=== PATIENT | female | born 1995 | race Caucasian/White ===

== ENCOUNTER → 2017-02-10 | Outpatient (CLI) | payer MEDICAID ==
[~2017-02-10] MED LIST: ACET-789 PO; ACHD5005 PO; ALBU17AE23 INH; ALBU17AE3 IH; AMOX500C2 PO; CEFU250T11 PO; DOCU100C37 PO; FERR-74 PO; HYDR-3720 PO; HYDR1TAB86 PO; IBP600T1 PO; IBUP-1773 PO; KETO75CA PO; MNTL10T PO; PRD20T PO; PREN1TAB71 PO; TRM50T PO; [UNRECOGNIZED DRUG - REMARK]
--- NOTE | 2017-02-10 17:41 | Diagnostic Imaging Report ---
INDICATION: survey. TECHNIQUE: Multiple real-time grayscale images were obtained over the gravid uterus. COMPARISON: None FINDINGS: There is a single intrauterine with heart rate of 144 beats per minute. The placenta is anterior and fundal. No placenta previa. The cervix is 4.7 cm in length and appears closed. The ventricles are not dilated. The posterior fossa appear unremarkable. The stomach, bladder, two-vessel cord, and four-chamber view appear unremarkable. The cord insertion and the spine are not well demonstrated. No evidence of hydronephrosis or cystic renal mass. The maternal adnexa demonstrates no definite abnormality. The ovaries are not seen. Biometrical measurements are as follows: Biparietal 4.22 cm, age 18 weeks 6 days. Head circumference 17.26 cm, age 19 weeks 6 days. Abdominal circumference 15.63 cm, age 20 weeks 6 days. Femur length 3.23 cm, age 20 weeks 1 days. Sonographic estimate age: 20 weeks 0 days. Sonographic estimated date of delivery: 06/30/2017. Estimated Weight: 347 gm (+/- 51 gm). LMP percentile: 15%. heart rate: 144 beats per minute. number: 1 of 1. IMPRESSION: The cord insertion and the spine are not well seen due to position. Dictated by: Dictated on workstation # [id number]
== END ==
LOC: RAD 13:07
PROVIDERS: ATTEND Obstetrics & Gynecology
DX: Z36.87 Encounter for antenatal screening for uncertain dates (principal); Z3A.20 20 weeks gestation of pregnancy
CPT/HCPCS: 76805

== ENCOUNTER → 2017-03-31 | Outpatient (CLI) | payer MEDICAID ==
--- NOTE | 2017-03-31 12:01 | Diagnostic Imaging Report ---
INDICATION: Evaluate anatomy not seen on prior. TECHNIQUE: Multiple real-time grayscale images were obtained over the gravid uterus. COMPARISON: 02/10/2017 FINDINGS: There is a single living intrauterine in a cephalic presentation. There is normal volume of amniotic fluid. The placenta is anterior. No previa. Heart rate is 146 beats per minute and regular. The spine and cord insertion are still not visualized on today's exam. Biometry by first sonogram is 28 weeks zero days. IMPRESSION: Single living intrauterine with a sonographically estimated gestational age of 28 weeks 0 days estimated date of confinement of June 23, 2017. spine and cord insertion were again not well visualized on today's exam. Biometrical measurements are as follows: Biparietal cm, age weeks days. Head circumference cm, age weeks days. Abdominal circumference cm, age weeks days. Femur length cm, age weeks days. Sonographic estimate age: weeks days. Sonographic estimated date of delivery: . Estimated Weight: gm (+/- gm). LMP percentile: %. heart rate: beats per minute. number: of . IMPRESSION: Dictated by: Dictated on workstation # [id number]
== END ==
LOC: RAD 10:16
PROVIDERS: ATTEND Obstetrics & Gynecology
DX: O26.843 Uterine size-date discrepancy, third trimester (principal); Z3A.28 28 weeks gestation of pregnancy
CPT/HCPCS: 76816

== ENCOUNTER 2017-05-19 12:10 | Observation (INO) | payer MEDICAID ==
[~2017-05-19] VITALS: Ht 157.5 cm; Wt 81.6 kg
[~2017-05-19 12:10] MED LIST changes: -FERR-74 PO; +FERR325T18 PO
[2017-05-19 12:20] VITALS: BP 113/66
[2017-05-19] MEDS ORDERED: NS IV 1000 ML 1,000 ML ONE (12:44)
[2017-05-19] MEDS ORDERED: NS IV 1000 ML 1,000 ML IV SCH (13:45)
[2017-05-19 15:45] VITALS: BP 115/65
[2017-05-19] MEDS ORDERED: D5 LR IV SOLUTION 1,000 ML IV ONE (15:54)
[2017-05-19] MEDS: BETAMETHASONE ACE/NA PHOS 6 MG/ML (CELESTONE SOLUSPAN) IM SCH (16:00)
[2017-05-19] MEDS: AMPICILLIN INJECTION 1,000 MG in NS (IVPB) 50 ML IV SCH ×2 (16:15→20:06)
[2017-05-19 16:53] LABS: BILIRUBIN,URINE NEGATIVE (NEGATIVE); CLARITY,URINE CLEAR; COLOR,URINE YELLOW; GLUCOSE, URINE (UA) NEGATIVE (NEGATIVE); KETONES,URINE 2+ (NEGATIVE); LEUKOCYTE ESTERASE ,URINE 1+ (NEGATIVE); NITRITE,URINE NEGATIVE (NEGATIVE); PH,URINE 6 (5-9); PROTEIN,URINE NEGATIVE (NEGATIVE); UROBILINOGEN,URINE NORMAL (NORMAL)
[2017-05-19 16:58] LABS: BASOPHILS % (AUTO) 0 % (0-10); EOSINOPHILS # (AUTO) 0.1 10^3/uL (0.0-0.3); EOSINOPHILS % (AUTO) 1 % (0-10); HEMATOCRIT 32 % (35-52); HEMOGLOBIN 10.7 G/DL (11.5-16.0); LYMPHOCYTES # (AUTO) 1.8 X 10^3 (1.0-4.0); LYMPHOCYTES % (AUTO) 17 % (12-44); MEAN CORPUSCULAR HEMOGLOBIN 27 PG (25-34); MEAN CORPUSCULAR HGB CONC 34 G/DL (32-36); MEAN CORPUSCULAR VOLUME 79 FL (80-99); MONOCYTES # (AUTO) 0.7 X 10^3 (0.0-1.0); MONOCYTES % (AUTO) 6 % (0-12); NEUTROPHILS # (AUTO) 8.1 X 10^3 (1.8-7.8); NEUTROPHILS % (AUTO) 76 % (42-75); PLATELET COUNT 221 10^3/uL (130-400); RED BLOOD COUNT 3.98 10^6/uL (4.35-5.85); RED CELL DISTRIBUTION WIDTH 12.5 % (10.0-14.5); WHITE BLOOD COUNT 10.7 10^3/uL (4.3-11.0)
[2017-05-19 17:05] LABS: RBC,URINE 0-2 /HPF
[2017-05-19 17:06] LABS: BACTERIA,URINE TRACE /HPF
[2017-05-19 19:35] VITALS: BP 124/67
[2017-05-20 00:05] VITALS: BP 106/57
[2017-05-20] MEDS: AMPICILLIN INJECTION 1,000 MG in NS (IVPB) 50 ML IV SCH ×3 (00:05→08:00)
[2017-05-20] MEDS ORDERED: D5 LR IV SOLUTION 1,000 ML IV ONE (01:32)
[2017-05-20 07:22] VITALS: BP 117/64
--- NOTE | 2017-05-20 10:21 | Short Stay Summary ---
History of Present Illness History of Present Illness Reason for visit/HPI contractions, painful Date of Admission 05/19/17 Date of Discharge 05/20/17 Time Seen by Provider: 12:00 Attending Physician Archana Mckeon DO Admitting Physician No,Local Physician Consult Patient was sent from my clinic due to painful contractions. NST reactive but adam every 3-4 minutes. Due to gestational age, sent for monitoring. After IV Fluid bolus she continued to contract. Due to this I opted to monitor her overnight. During this time, ampicillin was started due to unknown GBS ( done in office prior to admission). Also betamethasone given for lung maturity. She was kept overnight and contractions finally ceased. An ultrasound was done due to suboptimal findings on previous ultrasound. Once this was done and BPP and NST reactiva she was discharged to home with labor instructions. Allergies and Home Medications Allergies Coded Allergies: No Known Drug Allergies (Unverified , 11/07/09) Home Medications Albuterol 17 Gm Inh, 1-2 PUFF IH Q4H PRN for SHORTNESS OF BREATH, (Reported) Vit No.124/Iron/FA 1 Each Tablet, 1 EACH PO DAILY, (Reported) Past Ceomuch-Rnlbkq-Snhtsf Hx Patient Social History Marrital Status: cohabiting Number of Children: 1 Number of living children: 1 Smoking Status: Never a Smoker Physical Abuse Screen: No Sexual Abuse: No Recent Foreign Travel: No Contact w/other who traveled: No Recent Infectious Disease Expo: No Immunizations Up To Date Tetanus Booster (TDap): Less than 5yrs Date of Pneumonia Vaccine: Apr 17, 2013 Date of Influenza Vaccine: Feb 16, 2017 Surgeries Yes (bilateral chest tube insertion) Respiratory Yes Asthma Currently Using CPAP: No Cardiovascular No Reproductive System Expected Date of Delivery: May 19, 2017 Last Menstrual Period: Sep 16, 2016 Hx : 2 Hx Para: 1 Hx Total # of Abortions (Spona: 0 Hx Reproductive Disorders: No Sexually Transmitted Disease: Yes (chlamydia) Genitourinary Yes Gastrointestinal Yes Musculoskeletal Yes Endocrine History of Endocrine Disorders: Yes HEENT History of HEENT Disorders: Yes Cancer No Psychosocial Behavioral Health Disorders: Anxiety Blood Transfusions Adverse Reaction to a Blood Tr: No Family Medical History Family Hx: Cancer 03 FATHER Chest pain 03 MOTHER Family history: Asthma 03 MOTHER Headache 03 FATHER 03 MOTHER 09 BROTHER 09 BROTHER 09 SISTER Visual impairment 03 MOTHER No Family History of: Abdominal aortic aneurysm Beau's disease Alcoholism Aphasia Cancer of colon Cataract Congenital heart disease Congestive heart failure Cystic fibrosis Dementia Dysphagia Family history: Allergy Family history: Alzheimer's disease Family history: Arthritis Family history: Breast disease Family history: Cardiovascular disease Family history: Coronary thrombosis Family history: Diabetes mellitus Family history: Gastrointestinal disease Family history: Glaucoma Family history: Hypertension Family history: Osteoporosis Hearing loss Heart disease Hereditary disease History of - anemia History of - disorder History of - respiratory disease History of drug abuse Human immunodeficiency virus (HIV) seropositivity Hypercholesterolemia Infertile Kidney disease Malignant neoplasm of lung Myocardial infarction Parkinson's disease Prostate cancer Psychotic disorder Seizure disorder Stroke Tuberculosis Constitutional: no symptoms reported Physical Exam Vital Signs Vital Signs - First Documented 05/19/17 05/19/17 12:20 19:35 Temp 98.3 Pulse 73 Resp 20 B/P (MAP) 113/66 (82) O2 Delivery Room Air Capillary Refill : General Appearance: No Apparent Distress Respiratory: Chest Non Tender, Lungs Clear Cardiovascular: Regular Rate, Rhythm Short Stay Diagnosis Discharge Diagnosis-Short Stay Admission Diagnosis: Premature contractions Final Discharge Diagnosis: Premature congtraction threatened labor Conclusion Labs Laboratory Tests 05/19/17 16:05: Urine Color YELLOW, Urine Clarity CLEAR, Urine pH 6, Urine Specific [place] 1.015L, Urine Protein NEGATIVE, Urine Glucose (UA) NEGATIVE, Urine Ketones 2+H, Urine Nitrite NEGATIVE, Urine Bilirubin NEGATIVE, Urine Urobilinogen NORMAL, Urine Leukocyte Esterase 1+H, Urine RBC (Auto) 4+H, Urine RBC 0-2, Urine WBC 2-5 , Urine Squamous Epithelial Cells 5-10, Urine Crystals NONE, Urine Bacteria TRACE, Urine Casts NONE, Urine Mucus NEGATIVE, Urine Culture Indicated NO 05/19/17 16:51: White Blood Count 10.7, Red Blood Count 3.98L, Hemoglobin 10.7L, Hematocrit 32L , Mean Corpuscular Volume 79L, Mean Corpuscular Hemoglobin 27, Mean Corpuscular Hemoglobin Concent 34, Red Cell Distribution Width 12.5, Platelet Count 221, Mean Platelet Volume 10.0, Neutrophils (%) (Auto) 76H, Lymphocytes (%) (Auto) 17 , Monocytes (%) (Auto) 6, Eosinophils (%) (Auto) 1, Basophils (%) (Auto) 0, Neutrophils # (Auto) 8.1H, Lymphocytes # (Auto) 1.8, Monocytes # (Auto) 0.7, Eosinophils # (Auto) 0.1, Basophils # (Auto) 0.0 Conclusion/Plan see above ARCHANA MCKEON DO May 20, 2017 10:21 am
--- NOTE | 2017-05-20 10:24 | Discharge Inst-Women's Service ---
Discharge Inst-Women's Serv Depart Medication/Instructions New, Converted or Re-Newed RX: Other (no rx) Final Diagnosis labor, threatened Consults/Follow Up Additional Follow Up: Yes (05/26/17 as scheduled) Activity Activity: Activity as Tolerated Driving Instructions: You May Drive NO SMOKING: NO SMOKING Nothing Inside Vagina: No Douching, No Bow, No Tampons Diet Discharge Diet: No Restrictions labor insturctions For Any Problems or Questions: Contact Your Physician, Go to Emergency Room ( Labor and delivery) AMY MCKEON DO May 20, 2017 10:24
[2017-05-20] MEDS: BETAMETHASONE ACE/NA PHOS 6 MG/ML (CELESTONE SOLUSPAN) IM SCH (10:44)
--- NOTE | 2017-05-20 10:45 | Diagnostic Imaging Report ---
INDICATION: Evaluation of growth TECHNIQUE: Multiple real-time grayscale images were obtained over the gravid uterus. Comparison is made to study of 03/31/2017. FINDINGS: Mercado intrauterine fetus is again identified. Fetus is cephalic in presentation with amniotic fluid index of 9.3 cm. cardiac activity is present with rate of 152 beats per minute. Anterior placenta. There is no evidence of acute abnormality. biometry indicates gestational age of 34 weeks and one day. This does indicate normal progression. Sonographic EDC is 06/30/2017 which is within one week of that predicted by previous study. No anatomic anomalies identified however the spinal cord insertion and portions of the spine were not fully included. breathing motion with body tone and limb movements are noted. There is also breathing motion. IMPRESSION: Essentially unremarkable obstetrical ultrasound with normal progression since previous exam. Sonographic EDC is 06/23/2017 based on previous exam. biophysical profile score is 8/8. Biometrical measurements are as follows: Biparietal 8.32 cm, age 33 weeks 4 days. Head circumference 30.83 cm, age 34 weeks 3 days. Abdominal circumference 31.70 cm, age 35 weeks 5 days. Femur length 6.35 cm, age 32 weeks 6 days. Sonographic estimate age: 34 weeks 1 days. Sonographic estimated date of delivery: 06/30/2017. Estimated Weight: 2453 gm (+/- 358 gm). LMP percentile: 30%. heart rate: 152 beats per minute. number: 1 of 1. IMPRESSION: Dictated by: Dictated on workstation # [id number]
--- NOTE | 2017-05-31 21:18 | Physician Query-Final Dx ---
MOR NAVARRETE 05/31/17 9:18pm: Clinic Account Progress/Dx Physician Query: Please give diagnosis Date of Service AMY MCKEON DO 06/09/17 4:46pm: Clinic Account Progress/Dx DIAGNOSIS: Diagnosis threatened labor MOR NAVARRETE May 31, 2017 9:18 pm AMY MCKEON DO Jun 09, 2017 4:46 pm
== END 2017-05-20 10:23 | disposition home or self-care (01) ==
LOC: LDRP 12:10 → WSo 12:32 → LDRP 05-20 11:15 → WSo 05-20 11:15 → EDSTATUS 05-21 14:37
PROVIDERS: ADMIT Family Medicine; ATTEND Family Medicine
DX: O60.03 Preterm labor without delivery, third trimester (principal); Z3A.35 35 weeks gestation of pregnancy; O99.513 Diseases of the respiratory system complicating pregnancy, third trimester; J45.909 Unspecified asthma, uncomplicated
CPT/HCPCS: 36415; 76805; 76819; 81000; 85025; 86850; 86900; 86901; 87088; 96361; 96372; 96374; 96376; 99211; G0378

== ENCOUNTER 2017-05-29 20:43 | Outpatient (CLI) | payer MEDICAID ==
[~2017-05-29] VITALS: Ht 158.8 cm; Wt 81.6 kg
[2017-05-29 21:12] VITALS: BP 115/71
[2017-05-29 21:42] LABS: BILIRUBIN,URINE NEGATIVE (NEGATIVE); CLARITY,URINE CLEAR; COLOR,URINE YELLOW; GLUCOSE, URINE (UA) NEGATIVE (NEGATIVE); KETONES,URINE NEGATIVE (NEGATIVE); LEUKOCYTE ESTERASE ,URINE 2+ (NEGATIVE); NITRITE,URINE NEGATIVE (NEGATIVE); PH,URINE 6 (5-9); PROTEIN,URINE 1+ (NEGATIVE); UROBILINOGEN,URINE NORMAL (NORMAL)
[2017-05-29] MEDS ORDERED: PREN-142 PO (21:46)
[2017-05-29 21:51] LABS: BACTERIA,URINE FEW /HPF
[2017-05-29 21:52] LABS: RBC,URINE RARE /HPF
--- NOTE | 2017-06-07 10:21 | Physician Query-Final Dx ---
THONY SPARKS 06/07/17 1021: Clinic Account Progress/Dx Physician Query: Please give diagnosis Date of Service May 29, 2017 at 20:43 MITCHELL ZAMUDIO MD 06/07/17 1622: Clinic Account Progress/Dx DIAGNOSIS: Diagnosis False labor BRIDGER,THONY Jun 07, 2017 10:21 MITCHELL ZAMUDIO MD Jun 07, 2017 16:22
== END 2017-05-29 22:15 | disposition home or self-care (01) ==
LOC: WSo 20:43 → LDRP 20:44 → WSo 22:15
PROVIDERS: ATTEND Obstetrics & Gynecology
DX: O47.03 False labor before 37 completed weeks of gestation, third trimester (principal); Z3A.36 36 weeks gestation of pregnancy
CPT/HCPCS: 81000; 87088; 99214

== ENCOUNTER 2017-06-11 08:39 | Inpatient (IN) | payer MEDICAID ==
[~2017-06-11] VITALS: Ht 160 cm; Wt 83.0 kg
[2017-06-11] VITALS (49 sets, daily range): BP systolic 98–152; BP diastolic 1–87
[~2017-06-11 08:39] MED LIST changes: +PREN-142 PO
[2017-06-11] MEDS ORDERED: D5 LR IV SOLUTION 1,000 ML IV ONE (09:14)
[2017-06-11] MEDS: D5 LR IV SOLUTION 1,000 ML IV SCH ×2 (09:26→16:45)
[2017-06-11] MEDS ORDERED: MINERAL OIL CONCENTRATE 99.9% 15 ML UDC TOP PRN (09:30)
[2017-06-11] MEDS ORDERED: BUTORPHANOL INJ 2 MG/ML (STADOL) VIAL IV ONE (09:30)
[2017-06-11 09:38] LABS: BASOPHILS % (AUTO) 0 % (0-10); EOSINOPHILS # (AUTO) 0.1 10^3/uL (0.0-0.3); EOSINOPHILS % (AUTO) 1 % (0-10); HEMATOCRIT 32 % (35-52); HEMOGLOBIN 10.8 G/DL (11.5-16.0); LYMPHOCYTES # (AUTO) 2.4 X 10^3 (1.0-4.0); LYMPHOCYTES % (AUTO) 19 % (12-44); MEAN CORPUSCULAR HEMOGLOBIN 26 PG (25-34); MEAN CORPUSCULAR HGB CONC 34 G/DL (32-36); MEAN CORPUSCULAR VOLUME 78 FL (80-99); MEAN PLATELET VOLUME 10.3 FL (7.4-10.4); MONOCYTES % (AUTO) 8 % (0-12); NEUTROPHILS # (AUTO) 8.8 X 10^3 (1.8-7.8); NEUTROPHILS % (AUTO) 72 % (42-75); PLATELET COUNT 236 10^3/uL (130-400); RED CELL DISTRIBUTION WIDTH 12.9 % (10.0-14.5); WHITE BLOOD COUNT 12.3 10^3/uL (4.3-11.0)
[2017-06-11] MEDS ORDERED: SUFENTA 0.6MCG/ML BUPIVA 0.125 100 ML ONE (10:46)
[2017-06-11] MEDS ORDERED: LIDOCAINE PF 2% 5 ML (XYLOCAINE) VIAL ONE (11:26)
[2017-06-11] MEDS ORDERED: fentaNYL INJECTION 100 MCG/2 ML AMP ONE (11:26)
[2017-06-11] MEDS ORDERED: BUPIVACAINE 0.25% 30 ML (SENSORCAINE) VIAL ONE (11:26)
[2017-06-11] MEDS ORDERED: LACTATED RINGERS 1,000 ML IV ONE ×2 (12:07)
[2017-06-11] MEDS ORDERED: EPIDURAL (SUFENTA 0.6MCG/ML BUPIVA 0.125%) 100 ML BAG EPI PRN (12:15)
[2017-06-11] MEDS ORDERED: ONDANSETRON 4 MG/2 ML (SDV) Z0FRAN IV PRN (12:15)
[2017-06-11] MEDS ORDERED: NALOXONE 0.4 MG/ML 1 ML (NARCAN) VIAL IV PRN (12:15)
[2017-06-11] MEDS ORDERED: CATHETER FLUSH 10 ML SYR IV SCH (14:00)
[2017-06-11] MEDS ORDERED: OXYTOCIN/NORMAL SALINE 500 ML IV ONE ×2 (16:44→18:38)
[2017-06-11] MEDS ORDERED: LIDOCAINE/EPI 2% 1:200,00 (XYLOCAINE) 10 ML VIAL ONE (17:50)
--- NOTE | 2017-06-11 18:18 | OB Labor & Delivery Record ---
Vag Delivery Note Vag Delivery Note Date of Delivery: 06/11/17 Preoperative Diagnosis: Julieta Rodriguez is a 21 /Para 2 /1 , Gestational Age 38 2/7 weeks in spontaneous labor Postoperative Diagnosis: Same Surgeon: AMY MCKEON Anesthesia: epidural Delivery Type: vaginal Findings: Viable female infant, apgars and weight pending Lacerations: none Intact placenta with 3 vessel cord. No nuchal cord, body cord or shoulder dystocia Estimated Blood Loss: 150 ml Complications: None Condition: Stable Description of Procedure: The patient is a 21 year old at 38 2/7 weeks who presented in spontaneous labor. She was admitted and informed consent was obtained. Her labor course was remarkable for AROM. She progressed to complete dilatation and began to push. She was then set up for delivery. The 's head was delivered atraumatically in the OA position. The shoulders and remainder of the 's body were then delivered without difficulty. Upon delivery, the head was held below the level of the perineum and the mouth and nares were bulb suctioned. The cord was doubly clamped and cut and the infant was handed off to the pediatric staff. An intact placenta with 3-vessel cord delivered via [place] and there was found to be minimal bleeding.~ Vigorous fundal massage was performed and the fundus was found to be firm. IV oxytocin was given. Examination of the vagina and perineum revealed a no lacerations. Following the delivery, sponge, instrument and needle counts were correct. Mom and baby were both in stable condition in the labor suite. Vitals - Labs Vital Signs - I&O Vital Signs Date Time Temp Pulse Resp B/P (MAP) Pulse Ox O2 Delivery O2 Flow Rate FiO2 06/11/17 16:40 84 18 152/67 (95) 98 Room Air 06/11/17 16:25 78 18 125/70 (88) 99 Room Air 06/11/17 16:10 87 18 118/73 (88) 98 Room Air 06/11/17 15:55 98.3 75 18 106/56 (73) 98 Room Air 06/11/17 15:40 83 18 107/56 (73) 99 Room Air 06/11/17 15:25 78 18 117/56 (76) 98 Room Air 06/11/17 15:10 75 18 115/58 (77) 98 Room Air 06/11/17 15:00 Room Air 06/11/17 14:55 69 18 122/71 (88) 100 Non Rebreather 10.00 06/11/17 14:40 65 18 123/57 (79) 100 Non Rebreather 10.00 06/11/17 14:25 63 18 129/66 (87) 100 Non Rebreather 10.00 06/11/17 14:10 67 18 117/59 (78) 100 Non Rebreather 10.00 06/11/17 13:55 67 18 112/61 (78) 100 Non Rebreather 10.00 06/11/17 13:40 63 18 111/60 (77) 100 Non Rebreather 10.00 06/11/17 13:25 92 18 109/60 (76) 99 Non Rebreather 10.00 06/11/17 13:24 Non Rebreather 10.00 06/11/17 13:10 63 18 106/60 (75) 96 Room Air 06/11/17 12:55 98.0 72 18 107/61 (76) 97 Room Air 06/11/17 12:40 71 18 114/60 (78) 97 Room Air 06/11/17 12:25 71 18 114/60 (78) 97 Room Air 06/11/17 12:00 82 18 109/55 (73) 97 Room Air 06/11/17 11:55 76 18 107/56 (73) 97 Room Air 06/11/17 11:52 80 18 109/63 (78) 98 Room Air 06/11/17 11:46 98.0 85 18 119/71 (87) 98 Room Air 06/11/17 11:43 73 18 128/74 (92) 98 Room Air 06/11/17 11:40 85 18 124/61 (82) 97 Room Air 06/11/17 11:37 78 18 123/68 (86) 98 Room Air 06/11/17 11:34 81 18 122/63 (82) 98 Room Air 06/11/17 11:30 80 18 124/69 (87) 96 Room Air 06/11/17 11:25 77 18 114/64 (81) Room Air 06/11/17 11:10 75 18 115/66 (82) Room Air 06/11/17 10:55 79 18 126/73 (90) Room Air 06/11/17 10:40 82 18 117/68 (84) Room Air 06/11/17 10:25 74 18 119/68 (85) Room Air 06/11/17 10:10 86 18 120/87 (98) Room Air 06/11/17 09:54 82 18 129/66 (87) 06/11/17 09:38 97.6 76 18 124/70 (88) 06/11/17 08:56 78 18 133/72 (92) Labs Laboratory Tests 06/11/17 09:28: White Blood Count 12.3H, Red Blood Count 4.10L, Hemoglobin 10.8L, Hematocrit 32L , Mean Corpuscular Volume 78L, Mean Corpuscular Hemoglobin 26, Mean Corpuscular Hemoglobin Concent 34, Red Cell Distribution Width 12.9, Platelet Count 236, Mean Platelet Volume 10.3, Neutrophils (%) (Auto) 72, Lymphocytes (%) (Auto) 19 , Monocytes (%) (Auto) 8, Eosinophils (%) (Auto) 1, Basophils (%) (Auto) 0, Neutrophils # (Auto) 8.8H, Lymphocytes # (Auto) 2.4, Monocytes # (Auto) 1.0, Eosinophils # (Auto) 0.1, Basophils # (Auto) 0.0 MAY MCKEON DO Jun 11, 2017 18:18
[2017-06-11] MEDS ORDERED: OXYTOCIN/NORMAL SALINE 500 ML IV SCH (19:34)
[2017-06-11] MEDS ORDERED: WITCH HAZEL(TUCKS) 40 EA JAR TOP PRN (19:45)
[2017-06-11] MEDS ORDERED: TETANUS,DIPTH,PERTUSS P/F (BOOSTRIX) 0.5 ML VIAL IM ONE (19:45)
[2017-06-11] MEDS ORDERED: BENZOCAINE/MENTHOL (DERMOPLAST) 56 ML CAN TP PRN (19:45)
[2017-06-11] MEDS: IBUPROFEN 600 MG (MOTRIN) TAB PO SCH (22:01)
[2017-06-11] MEDS: DOCUSATE SODIUM 100 MG (COLACE) CAP PO SCH (22:01)
[2017-06-12] VITALS: BP 110/68
[2017-06-12 04:17] VITALS: BP 111/66
[2017-06-12] MEDS: IBUPROFEN 600 MG (MOTRIN) TAB PO SCH ×4 (04:17→21:22)
[2017-06-12 05:56] LABS: BASOPHILS % (AUTO) 0 % (0-10); EOSINOPHILS # (AUTO) 0.2 10^3/uL (0.0-0.3); EOSINOPHILS % (AUTO) 1 % (0-10); HEMATOCRIT 30 % (35-52); HEMOGLOBIN 9.8 G/DL (11.5-16.0); LYMPHOCYTES # (AUTO) 2.7 X 10^3 (1.0-4.0); LYMPHOCYTES % (AUTO) 20 % (12-44); MEAN CORPUSCULAR HEMOGLOBIN 26 PG (25-34); MEAN CORPUSCULAR HGB CONC 33 G/DL (32-36); MEAN CORPUSCULAR VOLUME 79 FL (80-99); MEAN PLATELET VOLUME 10.3 FL (7.4-10.4); MONOCYTES # (AUTO) 1.4 X 10^3 (0.0-1.0); MONOCYTES % (AUTO) 10 % (0-12); NEUTROPHILS # (AUTO) 9.5 X 10^3 (1.8-7.8); NEUTROPHILS % (AUTO) 69 % (42-75); PLATELET COUNT 220 10^3/uL (130-400); RED BLOOD COUNT 3.72 10^6/uL (4.35-5.85); RED CELL DISTRIBUTION WIDTH 13.1 % (10.0-14.5); WHITE BLOOD COUNT 13.8 10^3/uL (4.3-11.0)
--- NOTE | 2017-06-12 07:04 | Postpartum Progress Note ---
Note Note Day # [] Subjective: Patient is without complaints. Ambulating, voiding. Tolerating a regular diet without nausea or vomiting. Normal lochia. Pain is well controlled with oral pain medications. Objective: Laboratory Tests Test 06/11/17 09:28 06/12/17 05:45 Range/Units White Blood Count 12.3 H 13.8 H 4.3-11.0 10^3/uL Red Blood Count 4.10 L 3.72 L 4.35-5.85 10^6/uL Hemoglobin 10.8 L 9.8 L 11.5-16.0 G/DL Hematocrit 32 L 30 L 35-52 % Mean Corpuscular Volume 78 L 79 L 80-99 FL Mean Corpuscular Hemoglobin 26 26 25-34 PG Mean Corpuscular Hemoglobin Concent 34 33 32-36 G/DL Red Cell Distribution Width 12.9 13.1 10.0-14.5 % Platelet Count 236 220 130-400 10^3/uL Mean Platelet Volume 10.3 10.3 7.4-10.4 FL Neutrophils (%) (Auto) 72 69 42-75 % Lymphocytes (%) (Auto) 19 20 12-44 % Monocytes (%) (Auto) 8 10 0-12 % Eosinophils (%) (Auto) 1 1 0-10 % Basophils (%) (Auto) 0 0 0-10 % Neutrophils # (Auto) 8.8 H 9.5 H 1.8-7.8 X 10^3 Lymphocytes # (Auto) 2.4 2.7 1.0-4.0 X 10^3 Monocytes # (Auto) 1.0 1.4 H 0.0-1.0 X 10^3 Eosinophils # (Auto) 0.1 0.2 0.0-0.3 10^3/uL Basophils # (Auto) 0.0 0.0 0.0-0.1 10^3/uL Vital Sign - Last 12Hours 06/11/17 06/11/17 06/11/17 06/11/17 19:12 19:41 20:05 21:08 Temp 98.7 Pulse 83 83 86 80 Resp 18 18 18 18 B/P (MAP) 119/77 (91) 119/70 (86) 110/66 (81) 107/60 (76) O2 Delivery Room Air Room Air Room Air Room Air 06/12/17 06/12/17 00:00 04:17 Temp 98.0 97.8 Pulse 82 82 Resp 18 18 B/P (MAP) 110/68 (82) 111/66 (81) Pulse Ox 98 O2 Delivery Room Air Room Air Intake and Output 06/12/17 00:00 Intake Total 1000 ml Balance 1000 ml Physical Exam: General - Alert and oriented, no apparent distress Abdomen - Soft, appropriately tender to palpation, non-distended, fundus firm at umbilicus Extremities - no edema, negative Sage's bilaterally Assessment: 1. post- day # 1, status post spontaneous vaginal delivery. Recovering well, hemodynamically stable 2. post anemia Plan: Routine care. Encourage breast feeding. Encourage ambulation. Ferrous sulfate supplementation. Plan for discharge tomorrow Vitals - Labs Vital Signs - I&O Vital Signs Date Time Temp Pulse Resp B/P (MAP) Pulse Ox O2 Delivery O2 Flow Rate FiO2 06/12/17 04:17 97.8 82 18 111/66 (81) Room Air 06/12/17 00:00 98.0 82 18 110/68 (82) 98 Room Air 06/11/17 21:08 80 18 107/60 (76) Room Air 06/11/17 20:05 98.7 86 18 110/66 (81) Room Air 06/11/17 19:41 83 18 119/70 (86) Room Air 06/11/17 19:12 83 18 119/77 (91) Room Air 06/11/17 18:55 79 18 114/64 (81) Room Air 06/11/17 18:40 86 18 120/62 (81) Room Air 06/11/17 18:25 85 18 108/66 (80) Room Air 06/11/17 18:10 85 18 126/77 (93) Room Air 06/11/17 17:55 85 18 120/74 (89) 97 Room Air 06/11/17 17:40 85 18 98/50 (66) 97 Room Air 06/11/17 17:25 82 18 115/62 (79) 98 Room Air 06/11/17 17:10 81 18 131/74 (93) 97 Room Air 06/11/17 16:55 81 18 146/75 (98) 97 Room Air 06/11/17 16:40 84 18 152/67 (95) 98 Room Air 06/11/17 16:25 78 18 125/70 (88) 99 Room Air 06/11/17 16:10 87 18 118/73 (88) 98 Room Air 06/11/17 15:55 98.3 75 18 106/56 (73) 98 Room Air 06/11/17 15:40 83 18 107/56 (73) 99 Room Air 06/11/17 15:25 78 18 117/56 (76) 98 Room Air 06/11/17 15:10 75 18 115/58 (77) 98 Room Air 06/11/17 15:00 Room Air 06/11/17 14:55 69 18 122/71 (88) 100 Non Rebreather 10.00 06/11/17 14:40 65 18 123/57 (79) 100 Non Rebreather 10.00 06/11/17 14:25 63 18 129/66 (87) 100 Non Rebreather 10.00 06/11/17 14:10 67 18 117/59 (78) 100 Non Rebreather 10.00 06/11/17 13:55 67 18 112/61 (78) 100 Non Rebreather 10.00 06/11/17 13:40 63 18 111/60 (77) 100 Non Rebreather 10.00 06/11/17 13:25 92 18 109/60 (76) 99 Non Rebreather 10.00 06/11/17 13:24 Non Rebreather 10.00 06/11/17 13:10 63 18 106/60 (75) 96 Room Air 06/11/17 12:55 98.0 72 18 107/61 (76) 97 Room Air 06/11/17 12:40 71 18 114/60 (78) 97 Room Air 06/11/17 12:25 71 18 114/60 (78) 97 Room Air 06/11/17 12:00 82 18 109/55 (73) 97 Room Air 06/11/17 11:55 76 18 107/56 (73) 97 Room Air 06/11/17 11:52 80 18 109/63 (78) 98 Room Air 06/11/17 11:46 98.0 85 18 119/71 (87) 98 Room Air 06/11/17 11:43 73 18 128/74 (92) 98 Room Air 06/11/17 11:40 85 18 124/61 (82) 97 Room Air 06/11/17 11:37 78 18 123/68 (86) 98 Room Air 06/11/17 11:34 81 18 122/63 (82) 98 Room Air 06/11/17 11:30 80 18 124/69 (87) 96 Room Air 06/11/17 11:25 77 18 114/64 (81) Room Air 06/11/17 11:10 75 18 115/66 (82) Room Air 06/11/17 10:55 79 18 126/73 (90) Room Air 06/11/17 10:40 82 18 117/68 (84) Room Air 06/11/17 10:25 74 18 119/68 (85) Room Air 06/11/17 10:10 86 18 120/87 (98) Room Air 06/11/17 09:54 82 18 129/66 (87) 06/11/17 09:38 97.6 76 18 124/70 (88) 06/11/17 08:56 78 18 133/72 (92) I & O 06/12/17 07:00 Intake Total 1000 ml Balance 1000 ml Labs Laboratory Tests 06/11/17 09:28: White Blood Count 12.3H, Red Blood Count 4.10L, Hemoglobin 10.8L, Hematocrit 32L , Mean Corpuscular Volume 78L, Mean Corpuscular Hemoglobin 26, Mean Corpuscular Hemoglobin Concent 34, Red Cell Distribution Width 12.9, Platelet Count 236, Mean Platelet Volume 10.3, Neutrophils (%) (Auto) 72, Lymphocytes (%) (Auto) 19 , Monocytes (%) (Auto) 8, Eosinophils (%) (Auto) 1, Basophils (%) (Auto) 0, Neutrophils # (Auto) 8.8H, Lymphocytes # (Auto) 2.4, Monocytes # (Auto) 1.0, Eosinophils # (Auto) 0.1, Basophils # (Auto) 0.0 06/12/17 05:45: White Blood Count 13.8H, Red Blood Count 3.72L, Hemoglobin 9.8L, Hematocrit 30L , Mean Corpuscular Volume 79L, Mean Corpuscular Hemoglobin 26, Mean Corpuscular Hemoglobin Concent 33, Red Cell Distribution Width 13.1, Platelet Count 220, Mean Platelet Volume 10.3, Neutrophils (%) (Auto) 69, Lymphocytes (%) (Auto) 20 , Monocytes (%) (Auto) 10, Eosinophils (%) (Auto) 1, Basophils (%) (Auto) 0, Neutrophils # (Auto) 9.5H, Lymphocytes # (Auto) 2.7, Monocytes # (Auto) 1.4H, Eosinophils # (Auto) 0.2, Basophils # (Auto) 0.0 AMY MCKEON DO Jun 12, 2017 07:04
[2017-06-12] MEDS: PRENATAL VITAMIN 1 EA TAB PO SCH (08:45)
[2017-06-12] MEDS: FERROUS SULF 325 MG (IRON) TAB PO SCH (08:45)
[2017-06-12] MEDS: DOCUSATE SODIUM 100 MG (COLACE) CAP PO SCH ×2 (08:45→21:21)
[2017-06-12 13:00] VITALS: BP 118/68
[2017-06-12 15:50] VITALS: BP 112/75
[2017-06-12 21:23] VITALS: BP 105/59
[2017-06-13 05:30] VITALS: BP 108/76
[2017-06-13] MEDS: IBUPROFEN 600 MG (MOTRIN) TAB PO SCH (05:37)
[2017-06-13] MEDS ORDERED: IBUP-1773 PO (07:17)
[2017-06-13] MEDS ORDERED: FERR325T18 PO (07:17)
--- NOTE | 2017-06-13 07:19 | Discharge Inst-Women's Service ---
Discharge Inst-Women's Serv Depart Medication/Instructions New, Converted or Re-Newed RX: RX on Chart Final Diagnosis labor post anemia/iron def anemia epidural vaginal delivery Consults/Follow Up Additional Follow Up: Yes (6 weeks pp exam) Activity Activity: Activity as Tolerated Driving Instructions: You May Drive NO SMOKING: NO SMOKING Nothing Inside Vagina: No Douching, No [place], No Tampons Diet Discharge Diet: No Restrictions Symptoms to Report to : Bleeding Excessive, Pain Increased, Fever Over 101 Degrees F, Vaginal Bleeding Increase, Cramps in Feet or Legs For Any Problems or Questions: Contact Your Physician AMY MCKEON DO Jun 13, 2017 07:19
--- NOTE | 2017-06-13 08:38 | Progress Note-Standard ---
Standard Progress Note Progress Notes/Assess & Plan Date Seen by Provider: Jun 13, 2017 Time Seen by Provider: 08:37 Progress/Assessment & Plan This patient is without complaint. She is ambulating, voiding, tolerating by mouth well, has good pain control, denies chest pain, denies shortness of breath , denies nausea vomiting, denies headache, and is requesting discharge home. Vital Signs Date Time Temp Pulse Resp B/P (MAP) Pulse Ox O2 Delivery O2 Flow Rate FiO2 06/13/17 05:30 97.7 70 18 108/76 (87) 96 Room Air 06/12/17 21:23 97.6 73 16 105/59 (74) 98 Room Air 06/12/17 15:50 97.6 86 18 112/75 (87) 96 Room Air 06/12/17 13:00 97.7 66 18 118/68 (85) 98 Room Air Vital signs are stable. Patient is afebrile. The abdomen is benign. Extremities are benign Assessment and plan post day number 2 status post spontaneous vaginal delivery doing well. Plan is for discharge home Final Diagnosis Spontaneous vaginal delivery MITCHELL ZAMUDIO MD Jun 13, 2017 8:38 am
[2017-06-13 10:00] VITALS: BP 114/75
[2017-06-13] MEDS: FERROUS SULF 325 MG (IRON) TAB PO SCH (10:03)
[2017-06-13] MEDS: DOCUSATE SODIUM 100 MG (COLACE) CAP PO SCH (10:03)
[2017-06-13] MEDS: PRENATAL VITAMIN 1 EA TAB PO SCH (10:03)
--- NOTE | 2017-06-13 10:39 | Anesthesia-Regional Post-Op ---
Regional Patient Condition Mental Status: Alert, Oriented x3 Circulation: Same as Pre-Op Headache: Absent Sensation: Full Recovery Motor Block: Absent Post Op Complications Complications None Follow Up Care/Instructions Patient Instructions None needed. Anesthesia/Patient Condition Patient is doing well, no complaints, stable vital signs, no apparent adverse anesthesia problems. No complications reported per nursing. LEON NARVAEZ CRNA Jun 13, 2017 10:39
== END 2017-06-13 15:30 | disposition home or self-care (01) | DRG 775 ==
LOC: WSo 08:39 → LDRP 08:40 → WSo 09:31 → LDRP 20:28
PROVIDERS: ADMIT Obstetrics & Gynecology; ATTEND Obstetrics & Gynecology
PROC: 10E0XZZ Delivery of Products of Conception, External Approach (ICD-10-PCS; principal; 2017-06-11)
DX: O99.513 Diseases of the respiratory system complicating pregnancy, third trimester (principal); J45.909 Unspecified asthma, uncomplicated; O99.03 Anemia complicating the puerperium; D64.9 Anemia, unspecified; Z3A.38 38 weeks gestation of pregnancy; Z37.0 Single live birth
CPT/HCPCS: 36415; 85025; 86850; 86900; 86901; 99212

== ENCOUNTER 2018-08-19 21:44 | Emergency (ER) | payer MEDICAID ==
[~2018-08-19] VITALS: Ht 157.5 cm; Wt 81.6 kg
[2018-08-19 22:01] LABS: BASOPHILS # (AUTO) 0.1 10^3/uL (0.0-0.1); BASOPHILS % (AUTO) 1 % (0-10); EOSINOPHILS # (AUTO) 0.3 10^3/uL (0.0-0.3); EOSINOPHILS % (AUTO) 4 % (0-10); HEMATOCRIT 41 % (35-52); HEMOGLOBIN 13.9 G/DL (11.5-16.0); LYMPHOCYTES # (AUTO) 2.8 X 10^3 (1.0-4.0); LYMPHOCYTES % (AUTO) 37 % (12-44); MEAN CORPUSCULAR HEMOGLOBIN 28 PG (25-34); MEAN CORPUSCULAR HGB CONC 34 G/DL (32-36); MEAN CORPUSCULAR VOLUME 81 FL (80-99); MEAN PLATELET VOLUME 9.7 FL (7.4-10.4); MONOCYTES # (AUTO) 0.8 X 10^3 (0.0-1.0); MONOCYTES % (AUTO) 10 % (0-12); NEUTROPHILS # (AUTO) 3.7 X 10^3 (1.8-7.8); NEUTROPHILS % (AUTO) 48 % (42-75); PLATELET COUNT 339 10^3/uL (130-400); RED CELL DISTRIBUTION WIDTH 12.8 % (10.0-14.5); WHITE BLOOD COUNT 7.7 10^3/uL (4.3-11.0)
--- NOTE | 2018-08-19 22:07 | ED Respiratory ---
General Chief Complaint: Respiratory Problems Stated Complaint: SOA Nursing Triage Note: PT complaining of left chest pain and states she has a hx of a spontaneous pneumo. Source: patient Exam Limitations: no limitations History of Present Illness Date Seen by Provider: August 19, 2018 Time Seen by Provider: 21:50 Initial Comments Here with acute onset of left-sided chest pain that occurred while she was holding her child. Is very concerned because she has history of spontaneous pneumothorax at age 17. Her mother has had similar issues in her life. Pain is radiating from the left chest to the left neck and is associated with shortness of breath. Denies nausea or vomiting. Denies other concerns. Pain is described as tightness and shortness of breath. Timing/Duration: just prior to arrival Severity: moderate Prior Episodes/Possible Cause: other Modifying Factors: Improves With Rest Associated Symptoms: chest pain/soreness; No cough, No lightheadedness; muscle aches; No nasal congestion, No nasal drainage; shortness of breath; No wheezing Allergies and Home Medications Allergies Coded Allergies: No Known Drug Allergies (Unverified , 11/07/09) Home Medications Albuterol 17 Gm Inh, 1-2 PUFF IH Q4H PRN for SHORTNESS OF BREATH, (Reported) Ferrous Sulfate 325 Mg Tablet, 325 MG PO DAILY@0700 Prescribed by: AMY MCKEON on 06/13/17716 Ibuprofen 600 Mg Tablet, 600 MG PO Q6H Prescribed by: AMY MCKEON on 06/13/1717 Vit No.124/Iron/FA 1 Each Tablet, 1 EACH PO DAILY, (Reported) Patient Home Medication List Home Medication List Reviewed: Yes Review of Systems Review of Systems Constitutional: see HPI; No chills, No fever EENTM: no symptoms reported Respiratory: see HPI, short of breath; No wheezing Cardiovascular: see HPI Gastrointestinal: No abdominal pain, No nausea, No vomiting Genitourinary: no symptoms reported Musculoskeletal: see HPI Skin: no symptoms reported Psychiatric/Neurological: No Symptoms Reported Past Vthsqyv-Heuxha-Jahtbm Hx Past Med/Social Hx: Reviewed Nursing Past Med/Soc Hx Patient Social History Alcohol Use: Denies Use Recreational Drug Use: No Smoking Status: Never a Smoker 2nd Hand Smoke Exposure: No Recent Foreign Travel: No Contact w/Someone Who Travel: No Recent Infectious Disease Expo: No Recent Hopitalizations: No (BRONCHITIS) Immunizations Up To Date Tetanus Booster (TDap): Less than 5yrs Date of Pneumonia Vaccine: Apr 17, 2013 Date of Influenza Vaccine: Feb 16, 2017 Past Medical History Surgeries: Yes (bilateral chest tube insertion) Respiratory: Yes Asthma Currently Using CPAP: No Cardiac: No Neurological: Yes (concussion 2011) Reproductive Disorders: No Sexually Transmitted Disease: Yes (chlamydia) Genitourinary: No Gastrointestinal: No Musculoskeletal: No Endocrine: No HEENT: No Cancer: No Psychosocial: Yes Anxiety Integumentary: No Blood Disorders: No Adverse Reaction/Blood Tranf: No Family Medical History Reviewed Nursing Family Hx Cancer 03 FATHER Chest pain 03 MOTHER Family history: Asthma 03 MOTHER Headache 03 FATHER 03 MOTHER 09 BROTHER 09 BROTHER 09 SISTER Visual impairment 03 MOTHER No Family History of: Abdominal aortic aneurysm Beau's disease Alcoholism Aphasia Cancer of colon Cataract Congenital heart disease Congestive heart failure Cystic fibrosis Dementia Dysphagia Family history: Allergy Family history: Alzheimer's disease Family history: Arthritis Family history: Breast disease Family history: Cardiovascular disease Family history: Coronary thrombosis Family history: Diabetes mellitus Family history: Gastrointestinal disease Family history: Glaucoma Family history: Hypertension Family history: Osteoporosis Hearing loss Heart disease Hereditary disease History of - anemia History of - disorder History of - respiratory disease History of drug abuse Human immunodeficiency virus (HIV) seropositivity Hypercholesterolemia Infertile Kidney disease Malignant neoplasm of lung Myocardial infarction Parkinson's disease Prostate cancer Psychotic disorder Seizure disorder Stroke Tuberculosis Physical Exam Vital Signs - First Documented 08/19/18 21:44 Temp 98.5 Pulse 88 Resp 20 B/P (MAP) 141/89 (106) Pulse Ox 98 O2 Delivery Room Air Capillary Refill : Less Than 3 Seconds Height: 5'2.00" Weight: 180lbs. 0.0oz. 81.526527px; 32.4 BMI Method:Stated General Appearance: WD/WN, no apparent distress HEENT: PERRL/EOMI, pharynx normal Neck: full range of motion, supple Respiratory: lungs clear, normal breath sounds Cardiovascular: regular rate, rhythm, no murmur Gastrointestinal: non tender, soft Extremities: normal range of motion, non-tender Neurologic/Psychiatric: alert, oriented x 3 Skin: normal color, warm/dry Progress/Results/Core Measures Suspected Sepsis Recent Fever Within 48 Hours: No Infection Criteria Present: None New/Unexplained Altered Menta: No Sepsis Screen: No Definite Risk SIRS Temperature:98.5 Pulse: 88 Respiratory Rate: 20 Laboratory Tests 08/19/18 21:48: White Blood Count 7.7 Blood Pressure 141 /89 Mean: 106 Laboratory Tests 08/19/18 21:48: Creatinine 0.77, Platelet Count 339, Total Bilirubin 0.5 Results/Orders Lab Results Laboratory Tests Test 08/19/18 21:48 Range/Units White Blood Count 7.7 4.3-11.0 10^3/uL Red Blood Count 5.03 4.35-5.85 10^6/uL Hemoglobin 13.9 11.5-16.0 G/DL Hematocrit 41 35-52 % Mean Corpuscular Volume 81 80-99 FL Mean Corpuscular Hemoglobin 28 25-34 PG Mean Corpuscular Hemoglobin Concent 34 32-36 G/DL Red Cell Distribution Width 12.8 10.0-14.5 % Platelet Count 339 130-400 10^3/uL Mean Platelet Volume 9.7 7.4-10.4 FL Neutrophils (%) (Auto) 48 42-75 % Lymphocytes (%) (Auto) 37 12-44 % Monocytes (%) (Auto) 10 0-12 % Eosinophils (%) (Auto) 4 0-10 % Basophils (%) (Auto) 1 0-10 % Neutrophils # (Auto) 3.7 1.8-7.8 X 10^3 Lymphocytes # (Auto) 2.8 1.0-4.0 X 10^3 Monocytes # (Auto) 0.8 0.0-1.0 X 10^3 Eosinophils # (Auto) 0.3 0.0-0.3 10^3/uL Basophils # (Auto) 0.1 0.0-0.1 10^3/uL D-Dimer 0.18 0.00-0.49 UG/ML Sodium Level 142 135-145 MMOL/L Potassium Level 3.9 3.6-5.0 MMOL/L Chloride Level 107 98-107 MMOL/L Carbon Dioxide Level 22 21-32 MMOL/L Anion Gap 13 5-14 MMOL/L Blood Urea Nitrogen 13 7-18 MG/DL Creatinine 0.77 0.60-1.30 MG/DL Estimat Glomerular Filtration Rate > 60 BUN/Creatinine Ratio 17 Glucose Level 94 70-105 MG/DL Calcium Level 9.7 8.5-10.1 MG/DL Corrected Calcium 8.5-10.1 MG/DL Total Bilirubin 0.5 0.1-1.0 MG/DL Aspartate Amino Transf (AST/SGOT) 18 5-34 U/L Alanine Aminotransferase (ALT/SGPT) 23 0-55 U/L Alkaline Phosphatase 114 40-136 U/L Troponin I < 0.028 <0.028 NG/ML C-Reactive Protein High Sensitivity 0.35 0.00-0.50 MG/DL Total Protein 8.3 H 6.4-8.2 GM/DL Albumin 4.8 H 3.2-4.5 GM/DL Serum Test, Qualitative NEGATIVE NEGATIVE My Orders Orders - ALVIN DUNAWAY MD Chest 1 View, Ap/Pa Only (08/19/18 21:49) Cbc With Automated Diff (08/19/18 21:52) Comprehensive Metabolic Panel (08/19/18 21:52) Hs C Reactive Protein (08/19/18 21:52) Hcg,Qualitative Serum (08/19/18 21:52) Ed Iv/Invasive Line Start (08/19/18 21:52) Ekg Tracing (08/19/18 21:52) Fibrin Degradation Products (08/19/18 22:13) Troponin I (08/19/18 22:13) Ketorolac Injection (Toradol Injection) (08/19/18 22:13) Vital Signs/I&O 08/19/18 21:44 Temp 98.5 Pulse 88 Resp 20 B/P (MAP) 141/89 (106) Pulse Ox 98 O2 Delivery Room Air Capillary Refill : Less Than 3 Seconds Blood Pressure Mean: 106 Progress Note : Progress Note Seen and evaluated. Chest x-ray ordered. IV, labs and EKG ordered. Monitor patient. No pneumothorax on chest x-ray. We will check d-dimer. 2242: No acute findings on labs. Patient did receive Toradol 30 mg IV. 2250: Overall feeling better. She is more comfortable going home. She is breast-feeding. She'll continue ibuprofen as needed as well as ice or heat. She'll follow-up with her doctor. [facility] I will send a copy of the chart out to them. Discharged home with return precautions. Patient verbalize understanding instructions and agreement with plan. ECG Initial ECG Impression Date: August 19, 2018 Initial ECG Impression Time: 22:03 Initial ECG Rate: 83 Comment Sinus rhythm with normal axis. No evidence of ST elevation [place]. No previous available for comparison. Interpreted by me. Diagnostic Imaging Diagonstic Imaging: Xray Plain Films/CT/US/NM/MRI: chest Comments No acute findings and no pneumothorax noted. Departure Impression Primary Impression: Chest wall pain Disposition: HOME, SELF-CARE Condition: Improved Departure-Patient Inst. Decision time for Depature: 22:52 Referrals: [facility] [place] Primary Care Physician Patient Instructions: Chest Pain (DC) Add. Discharge Instructions: All discharge instructions reviewed with patient and/or family. Voiced understanding. You may take ibuprofen 600 mg every 8 hours as needed for pain. You may take Tylenol/acetaminophen 1000 mg every 8 hours as needed for pain. Drink plenty of fluids. You may use ice packs or heat to the area of concern 20 minutes per hour to reduce pain. Follow-up with your doctor on Wednesday for recheck and further evaluation if not improved. Return for worse pain, fever, vomiting, breathing problems or other concerns as needed. Copy Copies To 1: KELSI RANDHAWA TIMOTHY D MD August 19, 2018 22:07
[2018-08-19] MEDS ORDERED: KETOROLAC 30 MG/ML VIAL IVP STA (22:13)
[2018-08-19 22:24] LABS: ALANINE AMINOTRANSFERASE 23 U/L (0-55); ALBUMIN 4.8 GM/DL (3.2-4.5); ALKALINE PHOSPHATASE 114 U/L (40-136); BILIRUBIN,TOTAL 0.5 MG/DL (0.1-1.0); BUN/CREATININE RATIO 17; CALCIUM 9.7 MG/DL (8.5-10.1); CARBON DIOXIDE 22 MMOL/L (21-32); CHLORIDE 107 MMOL/L (98-107); CREATININE SERUM 0.77 MG/DL (0.60-1.30); GFR ESTIMATED > 60; GLUCOSE 94 MG/DL (70-105); POTASSIUM 3.9 MMOL/L (3.6-5.0); SODIUM 142 MMOL/L (135-145); TOTAL PROTEIN 8.3 GM/DL (6.4-8.2)
[2018-08-19 23:00] VITALS: BP 121/74
--- OUTSIDE RECORDS SUMMARY | 2018-08-20 00:58 | XMS REPORT | Clinical Summary ---
Author Author [facility] Organization [facility] Address Unknown Phone Unavailable Care Team Providers Care Parts Sales Associate Name Role Phone PCP Unavailable Allergies Not on File Current Medications Not on file Active Problems Not on file Social History Tobacco Use Types Packs/Day Years Used Date Never Assessed Sex Assigned at Date Recorded Not on file Last Filed Vital Signs Not on file Plan of Treatment Not on file Results Not on filefrom Last 3 Months
--- OUTSIDE RECORDS SUMMARY | 2018-08-20 00:58 | XMS REPORT ---
Author Author Migration, Doctor Organization [facility] Address Unknown Phone Unavailable Care Team Providers Care Milling Planer Operator Name Role Phone Migration, Doctor Unavailable Unavailable PROBLEMS No Known Problems ALLERGIES No Information ENCOUNTERS Encounter Location Date Diagnosis [facility] [id number] [place] [address] Jun, Non-recurrent acute suppurative otitis media of left ear without spontaneous rupture of tympanic membrane H66.002 [facility] WALK IN [facility] [id number] [place] [address] Feb, Mastitis, right, acute N61.0 [facility] [address] [address] Dec, Acute nasopharyngitis [common cold] J00 [facility] [id number] [place] [address] Jun, [facility] [id number] [place] [address] Jun, [facility] [id number] [place] [address] Apr, [facility] [id number] [place] [address] Apr, [facility] [id number] [place] [address] Mar, [facility] [id number] [place] [address] Mar, [facility] [id number] [place] [address] Jan, [facility] [address] [address] Jan, [facility] [place] [facility] [address] [id number] [place] [address] Dec, [facility] [place] [facility] [address] [id number] [place] [address] Dec, [facility] [place] [facility] [address] [id number] [place] [address] Nov, [facility] [place] [facility] [address] [id number] [place] [address] Nov, [facility] [place] [facility] [address] [id number] [place] [address] Oct, [facility] [place] [facility] [address] [id number] [place] [address] Oct, [facility] [place] [facility] [address] [id number] [place] [address] Sep, [facility] [place] [facility] [address] [id number] [place] [address] Sep, [facility] [place] [facility] [address] [id number] [place] [address] Aug, [facility] [place] [facility] [address] [id number] [place] [address] Aug, [facility] [place] [facility] [address] [id number] [place] [address] Aug, [facility] [place] [facility] [address] [id number] [place] [address] Aug, [facility] [place] [facility] [address] [id number] [place] [address] Aug, [facility] [place] [facility] [address] [id number] [place] [address] Aug, [facility] [place] [facility] [address] [id number] [place] [address] Aug, [facility] [place] [facility] [id number] [place] [address] Aug, [facility] [id number] [place] [address] Aug, [facility] [id number] [place] [address] Aug, [facility] [id number] [place] [address] Aug, [facility] [id number] [place] [address] Feb, [facility] [id number] [place] [address] Feb, [facility] [id number] [place] [address] Apr, [facility] [address] [place] [address] Apr, [facility] [id number] [place] [address] Oct, IMMUNIZATIONS No Known Immunizations SOCIAL HISTORY Never Assessed REASON FOR VISIT [place] [place] VITAL SIGNS MEDICATIONS No Known Medications RESULTS No Results PROCEDURES No Known procedures INSTRUCTIONS MEDICATIONS ADMINISTERED No Known Medications MEDICAL (GENERAL) HISTORY Type Description Date Medical History Asthma Medical History Allergic rhinitis due to pollen Medical History Asthma, unspecified, unspecified status Medical History 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
--- OUTSIDE RECORDS SUMMARY | 2018-08-20 00:59 | XMS REPORT ---
Author Author GO WILHELM [facility] [employer] Address Unknown Phone Unavailable Care Team Providers Care Client Insights Consultant Name Role Phone GO WILHELM CP Unavailable Allergies, Adverse Reactions, Alerts Substance Reaction Event Type N.K.D.A. Info Not Available Non Drug Allergy Problems Problem Type Condition Code Onset Dates Condition Status Problem Hordeolum externum 373.11 Active Problem Screening examination for venereal disease V74.5 Active Problem Chest pain, unspecified 786.50 Active Problem Acute suppurative otitis media without spontaneous rupture of eardrum 382.00 Active Problem Acute bronchitis 466.0 Active Problem Acute upper respiratory infections of unspecified site 465.9 Active Problem Unspecified backache 724.5 Active Problem Unspecified contraceptive management V25.9 Active Problem Allergic rhinitis due to pollen 477.0 Active Problem Asthma, unspecified, with (acute) exacerbation 493.92 Active Assessment Acute nasopharyngitis [common cold] J00 Active Problem Asthma, unspecified, unspecified status 493.90 Active Problem 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
--- OUTSIDE RECORDS SUMMARY | 2018-08-20 00:59 | XMS REPORT ---
Author Author JUNIE FISHMAN 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.10 Active 550336612 Problem Screening examination for venereal disease V74.5 Active 614231714 Problem Unspecified contraceptive management V25.9 Active 220297940 Problem Sprain and strain of unspecified site of back 847.9 Active 441883468 Problem Chest pain, unspecified 786.50 Active 13772166 Problem Allergic rhinitis due to pollen 477.0 Active 53929911 Problem Hordeolum externum 373.11 Active 4461709 Problem Acute bronchitis 466.0 Active 28967313 Problem Asthma, unspecified, unspecified status 493.90 Active 28233968 Problem Acute suppurative otitis media without spontaneous rupture of eardrum 382.00 Active 82583468 Problem Acute upper respiratory infections of unspecified site 465.9 Active 61810265 ALLERGIES No Known Allergies ENCOUNTERS Encounter Location Date Diagnosis [facility] [id number] [place] [address] Feb, Mastitis, right, acute N61.0 [facility] [id number] [place] [address] Dec, Acute nasopharyngitis [common cold] J00 [facility] [id number] [place] [address] Jun, [facility] [id number] [place] [address] Jun, [facility] [place] [facility] [address] [id number] [place] [address] Apr, [facility] [place] [facility] [address] [id number] [place] [address] Apr, [facility] [place] [facility] [address] [id number] [place] [address] Mar, [facility] [place] [facility] [address] [id number] [place] [address] Mar, [facility] [place] [facility] [address] [id number] [place] [address] Jan, [facility] [place] [facility] [address] [id number] [place] [address] Jan, [facility] [place] [facility] [address] [id number] [place] [address] Dec, [facility] [place] [facility] [address] [id number] [place] [address] Dec, [facility] [place] [facility] [address] [id number] [place] [address] Nov, [facility] [place] [facility] [address] [id number] [place] [address] Nov, [facility] [place] [facility] [address] [id number] [place] [address] Oct, [facility] [place] [facility] [address] [id number] [place] [address] Oct, [facility] [place] [facility] [address] [id number] [place] [address] Sep, [facility] [place] [facility] [address] [id number] [place] [address] Sep, [facility] [place] [facility] [address] [id number] [place] [address] Aug, [facility] [place] [facility] [address] [facility] [id number] [place] [address] 30 Aug, 2013 [facility] [address] [id number] [place] [address] Aug, [facility] [address] [id number] [place] [address] Aug, [facility] [address] [id number] [place] [address] Aug, [facility] [address] [id number] [place] [address] Aug, [facility] [address] [id number] [place] [address] Aug, [facility] [address] [id number] [place] [address] Aug, [facility] [address] [id number] [place] [address] Aug, [facility] [address] [id number] [address] Aug, [facility] [address] [id number] [address] Aug, [facility] [address] [id number] [address] Feb, [facility] [address] [id number], [place] [address] Feb, [facility] [address] [id number], [place] [address] Apr, [facility] [address] [id number], [place] [address] Apr, [facility] [address] [id number], [place] [address] Oct, IMMUNIZATIONS No Known Immunizations SOCIAL HISTORY Never Assessed REASON FOR VISIT mastistis right started yesterday JStrasserRN PLAN OF CARE Activity Details Follow Up prn Reason: VITAL SIGNS Height 61.5 in 2018-03-16 Weight 180.2 lbs 2018-03-16 Temperature 97.9 degrees Fahrenheit 2018-03-16 Heart Rate 112 bpm 2018-03-16 Respiratory Rate 20 2018-03-16 BMI 33.49 kg/m2 2018-03-16 Blood pressure systolic 120 mmHg 2018-03-16 Blood pressure diastolic 80 mmHg 2018-03-16 MEDICATIONS Medication Instructions Dosage Frequency Start Date End Date Duration Status Tylenol 325 MG Orally every 4 hrs 1 tablet as needed 4h Active Dicloxacillin Sodium 500 mg Orally every 6 hrs 1 capsule after meals 6h Feb, 10 day(s) Active RESULTS No Results PROCEDURES No Known procedures INSTRUCTIONS MEDICATIONS ADMINISTERED No Known Medications MEDICAL (GENERAL) HISTORY Type Description Date Medical History Asthma Surgical History Appendectomy Surgical History Lymphnode removal in neck due to [place] Surgical History Chest tube placement Hospitalization History Lung collapse Hospitalization History [place]/neck surgery Hospitalization History Appendectomy Hospitalization History Pneumonia
--- OUTSIDE RECORDS SUMMARY | 2018-08-20 00:59 | XMS REPORT ---
Author Author Migration, Doctor Organization [facility] Address Unknown Phone Unavailable Care Team Providers Care Machine Captain Name Role Phone Migration, Doctor Unavailable Unavailable PROBLEMS Type Condition ICD9-CM Code ACN28-RT Code Onset Dates Condition Status SNOMED Code Problem Unspecified contraceptive management V25.9 Active 078714196 Problem Screening examination for venereal disease V74.5 Active 321937732 Problem Unspecified backache 724.5 Active 734425975 Problem Acute pyelonephritis without lesion of renal medullary necrosis 590.10 Active 834036341 Problem Asthma, unspecified, with (acute) exacerbation 493.92 Active 218819664 Problem Hordeolum externum 373.11 Active 8686529 Problem Chest pain, unspecified 786.50 Active 70728797 Problem Allergic rhinitis due to pollen 477.0 Active 76652061 Problem Sprain and strain of unspecified site of back 847.9 Active 478929296 Problem Asthma, unspecified, unspecified status 493.90 Active 95829412 Problem Acute bronchitis 466.0 Active 78005181 Problem Acute upper respiratory infections of unspecified site 465.9 Active 84390039 Problem Acute suppurative otitis media without spontaneous rupture of eardrum 382.00 Active 04937026 ALLERGIES No Information ENCOUNTERS Encounter Location Date Diagnosis [facility] [id number] [address] Feb, Mastitis, right, acute N61.0 [facility] [id number] [place] [address] Dec, Acute nasopharyngitis [common cold] J00 [facility] [id number] [place] [address] Jun, [facility] [address] [address] Jun, [facility] [id number] [place] [address] Apr, [facility] [place] [facility] [address] [id number] [place] [address] Apr, [facility] [place] [facility] [address] [id number] [place] [address] Mar, [facility] [place] [facility] [address] [facility] [id number] [place] [address] Mar, [facility] [place] [facility] [address] [id number] [place] [address] Jan, [facility] [place] [facility] [address] [id number] [place] [address] Jan, [facility] [place] [facility] [address] [facility] [id number] [place] [address] Dec, [facility] [place] [facility] [address] [facility] [id number] [place] [address] Dec, [facility] [place] [facility] [address] [facility] [id number] [place] [address] Nov, [facility] [place] [facility] [address] [facility] [id number] [place] [address] Nov, [facility] [place] [facility] [address] [facility] [id number] [place] [address] Oct, [facility] [place] [facility] [address] [facility] [id number] [place] [address] Oct, [facility] [place] [facility] [address] [id number] [address] Sep, [facility] [place] [facility] [address] [id number] [place] [address] Sep, [facility] [place] [facility] [address] [facility] [id number] [place] [address] Aug, [facility] [place] [facility] [address] [facility] [id number] [place] [address] Aug, [facility] [place] [facility] [address] [facility] [id number] [address] Aug, [facility] [address] [facility] [id number] [address] Aug, [facility] [address] [facility] [id number][place] [address] Aug, [facility] [address] [facility] [id number], [place] [address] Aug, [facility] [address] [facility] [id number][place] [address] Aug, [facility] [id number] [address] Aug, [facility] [address] [address] Aug, [facility] [id number] [address] Aug, [facility] [id number], [place] [address] Aug, [facility] [id number] [address] Feb, [facility] [id number] [address] Feb, [facility] [id number], [place] [address] Apr, [facility] [id number] [address] Apr, [facility] [id number] [address] Oct, IMMUNIZATIONS No Known Immunizations SOCIAL HISTORY Never Assessed REASON FOR VISIT EMR-[facility] PLAN OF CARE VITAL SIGNS MEDICATIONS Medication Instructions Dosage Frequency Start Date End Date Duration Status Advair Diskus 250-50 mcg/dose inhale 1 puff by Inhalation route every morning and evening 2 times per day rinse mouth and spit after use Jan, Active Albuterol Sulfate by inhalation route Dec, Active Augmentin 875-125 mg 1 tablet by Oral route 2 times per day for 10 day(s) Apr, Active Singulair 10 mg 1 tablet by Oral route 1 time per day Dec, Active PredniSONE 20 mg 3 tablet by Oral route 1 time per day for 5 day(s) Dec, Active Pyridium 200 mg 1 tablet by Oral route 3 times per day for 3 day(s) Aug, Active Bactrim DS 800-160 mg take 1 tablet by Oral route 2 times per day for 10 days Aug, Active Depo-Provera by intramuscular route Aug, Active Zithromax Z-Ted 250 mg 2 tablet by Oral route 1 time per day for 1 days then take 1 tab daily on days 2-5 Dec, Active Ibuprofen 800 mg take 1 tablet (800 mg) by oral route 3 times per day with food for 14 days Apr, Active RESULTS No Results PROCEDURES No Known procedures INSTRUCTIONS MEDICATIONS ADMINISTERED No Known Medications MEDICAL (GENERAL) HISTORY Type Description Date Medical History Asthma Surgical History Appendectomy Surgical History Lymphnode removal in neck due to [place] Surgical History Chest tube placement Hospitalization History Lung collapse Hospitalization History [place]/neck surgery Hospitalization History Appendectomy Hospitalization History Pneumonia
--- OUTSIDE RECORDS SUMMARY | 2018-08-20 01:00 | XMS REPORT | Continuity of Care Document ---
Author Organization Unknown Address Unknown Allergies Active Description Code Type Severity Reaction Onset Reported/Identified Relationship to Patient Clinical Status Yes No Known Drug Allergies [id number] Drug Allergy Unknown N/A 11/07/2009 Medications There is no data. Problems Date Dx Coded Attending Type Code Diagnosis Diagnosed By 11/12/2009 075 INFECTIOUS MONONUCLEOSIS 11/12/2009 075 INFECTIOUS MONONUCLEOSIS 11/12/2009 ALANA WEBBER MD 075 INFECTIOUS MONONUCLEOSIS 11/12/2009 JANY DELANEY APRN 075 INFECTIOUS MONONUCLEOSIS 11/12/2009 SANDIE REDDY, JAY JAY 075 INFECTIOUS MONONUCLEOSIS 11/12/2009 SANDIE REDDY, JAY JAY 075 INFECTIOUS MONONUCLEOSIS 11/12/2009 SANDIE REDDY, JAY JAY 075 INFECTIOUS MONONUCLEOSIS 11/12/2009 KELSI RANDHAWA DO 075 INFECTIOUS MONONUCLEOSIS 11/12/2009 SANDIE REDDY, JAY JAY 075 INFECTIOUS MONONUCLEOSIS 11/12/2009 SANDIE REDDY, JAY JAY 075 INFECTIOUS MONONUCLEOSIS 11/20/2009 V58.49 OTHER SPECIFIED AFTERCARE FOLLOWING SURGERY 11/20/2009 V58.49 OTHER SPECIFIED AFTERCARE FOLLOWING SURGERY 11/20/2009 ALANA WEBBER MD V58.49 OTHER SPECIFIED AFTERCARE FOLLOWING SURGERY 11/20/2009 JANY DELANEY APRN V58.49 OTHER SPECIFIED AFTERCARE FOLLOWING SURGERY 11/20/2009 JAY JAY HOOPER MD V58.49 OTHER SPECIFIED AFTERCARE FOLLOWING SURGERY 11/20/2009 JAY JAY HOOPER MD V58.49 OTHER SPECIFIED AFTERCARE FOLLOWING SURGERY 11/20/2009 JAY JAY HOOPER MD V58.49 OTHER SPECIFIED AFTERCARE FOLLOWING SURGERY 11/20/2009 KELSI RANDHAWA DO V58.49 OTHER SPECIFIED AFTERCARE FOLLOWING SURGERY 11/20/2009 JAY JAY HOOPER MD V58.49 OTHER SPECIFIED AFTERCARE FOLLOWING SURGERY 11/20/2009 JAY JAY HOOPER MD V58.49 OTHER SPECIFIED AFTERCARE FOLLOWING SURGERY 11/19/2010 845.10 UNSPECIFIED SITE OF FOOT SPRAIN 11/19/2010 845.10 UNSPECIFIED SITE OF FOOT SPRAIN 11/19/2010 ALANA WEBBER MD 845.10 UNSPECIFIED SITE OF FOOT SPRAIN 11/19/2010 JANY DELANEY APRN A 845.10 UNSPECIFIED SITE OF FOOT SPRAIN 11/19/2010 JAY JAY HOOPER MD 845.10 UNSPECIFIED SITE OF FOOT SPRAIN 11/19/2010 JAY JAY HOOPER MD 845.10 UNSPECIFIED SITE OF FOOT SPRAIN 11/19/2010 ROCK HOOPER MDISTA 845.10 UNSPECIFIED SITE OF FOOT SPRAIN 11/19/2010 KELSI RANDHAWA DO K 845.10 UNSPECIFIED SITE OF FOOT SPRAIN 11/19/2010 JAY JAY HOOPER MD 845.10 UNSPECIFIED SITE OF FOOT SPRAIN 11/19/2010 JAY JAY HOOPER MD 845.10 UNSPECIFIED SITE OF FOOT SPRAIN 05/11/2012 724.5 BACKACHE 05/11/2012 724.5 BACKACHE 05/11/2012 ALANA WEBBER MD 724.5 BACKACHE 05/11/2012 JANY DELANEY APRN A 724.5 BACKACHE 05/11/2012 SANDIE REDDY, JAY JAY 724.5 BACKACHE 05/11/2012 SANDIE REDDY, JAY JAY 724.5 BACKACHE 05/11/2012 SANDIE REDDY, JAY JAY 724.5 BACKACHE 05/11/2012 KELSI RANDHAWA DO K 724.5 BACKACHE 05/11/2012 SANDIE REDDY, JAY JAY 724.5 BACKACHE 05/11/2012 SANDIE REDDY, JAY JAY 724.5 BACKACHE 05/23/2012 847.9 SPRAIN OF UNSPECIFIED SITE OF BACK 05/23/2012 ALANA WEBBER MD 847.9 SPRAIN OF UNSPECIFIED SITE OF BACK 05/23/2012 JANY DELANEY APRN A 847.9 SPRAIN OF UNSPECIFIED SITE OF BACK 05/23/2012 ROCK HOOPER MDISTA 847.9 SPRAIN OF UNSPECIFIED SITE OF BACK 05/23/2012 JAY JAY HOOPER MD 847.9 SPRAIN OF UNSPECIFIED SITE OF BACK 05/23/2012 SANDIE MD, JAY JAY 847.9 SPRAIN OF UNSPECIFIED SITE OF BACK 05/23/2012 SYDNEE DO, KELSI K 847.9 SPRAIN OF UNSPECIFIED SITE OF BACK 05/23/2012 SANDIE REDDY, JAY JAY 847.9 SPRAIN OF UNSPECIFIED SITE OF BACK 05/23/2012 SANDIE REDDY, JAY JAY 847.9 SPRAIN OF UNSPECIFIED SITE OF BACK 04/17/2013 ALIYA REDDY, HENRRY Gomez Ot 493.90 ASTHMA, UNSPECIFIED 04/17/2013 ALIYA REDDY, HENRRY Gomez Ot 512.89 OTHER PNEUMOTHORAX 04/17/2013 ALIYA REDDY, HENRRY Gomez Ot V03.82 PROPHYLACTIC VACC AGAINST STREPTOCOCCUS 04/17/2013 ALIYA REDDY, HENRRY Gomez Ot V04.81 ND FOR PROPHYLACTIC VACCIN AND INOCULATI 04/18/2013 AKIN REDDY, VÍCTOR Delaney Ot 786.50 CHEST PAIN NOS 04/18/2013 VÍCTOR GERARDO MD Ot 786.52 PAINFUL RESPIRATION 2013 JANY DELANEY APRN A V25.9 CONTRACEPTION MANAGEMENT 2013 JANY DELANEY APRN A V74.5 STD SCREEN 2013 JAY JAY HOOPER MD V25.9 CONTRACEPTION MANAGEMENT 2013 SANDIE REDDY, JAY JAY V74.5 STD SCREEN 2013 JAY JAY HOOPER MD V25.9 CONTRACEPTION MANAGEMENT 2013 SANDIE REDDY, JAY JAY V74.5 STD SCREEN 2013 ROCK HOOPER MDISTA V25.9 CONTRACEPTION MANAGEMENT 2013 SANDIE REDDY, JAY JAY V74.5 STD SCREEN 2013 KELSI RANDHAWA DO K V25.9 CONTRACEPTION MANAGEMENT 2013 KELSI RANDHAWA DO K V74.5 STD SCREEN 2013 SANDIE REDDY, JAY JAY V25.9 CONTRACEPTION MANAGEMENT 2013 SANDIE REDDY, JAY JAY V74.5 STD SCREEN 2013 JAY JAY HOOPER MD V25.9 CONTRACEPTION MANAGEMENT 2013 SANDIE REDDY, JAY JAY V74.5 STD SCREEN 09/14/2013 SANDIE REDDY, JAY JAY 786.50 UNSPECIFIED CHEST PAIN 09/14/2013 SANDIE REDDY, JAY JAY 786.50 UNSPECIFIED CHEST PAIN 09/14/2013 JAY JAY HOOPER MD 786.50 UNSPECIFIED CHEST PAIN 09/14/2013 KELSI RANDHAWA DO 786.50 UNSPECIFIED CHEST PAIN 09/14/2013 JAY JAY HOOPER MD 786.50 UNSPECIFIED CHEST PAIN 09/14/2013 JAY JAY HOOPER MD 786.50 UNSPECIFIED CHEST PAIN 09/14/2013 DEREK LEE MONTERO Ot 733.6 TIETZE'S DISEASE 09/20/2013 JAY JAY HOOPER MD 590.10 ACUTE PYELONEPHRITIS WITHOUT LESION OF RENAL MEDULLARY NECROSIS 09/20/2013 JAY JAY HOOPER MD 590.10 ACUTE PYELONEPHRITIS WITHOUT LESION OF RENAL MEDULLARY NECROSIS 09/20/2013 KELSI RANDHAWA DO 590.10 ACUTE PYELONEPHRITIS WITHOUT LESION OF RENAL MEDULLARY NECROSIS 09/20/2013 JAY JAY HOOPER MD 590.10 ACUTE PYELONEPHRITIS WITHOUT LESION OF RENAL MEDULLARY NECROSIS 09/20/2013 JAY JAY HOOPER MD 590.10 ACUTE PYELONEPHRITIS WITHOUT LESION OF RENAL MEDULLARY NECROSIS 10/20/2013 LITO MIGUEL MD Ot 786.05 SHORTNESS OF BREATH 10/20/2013 LITO MIGUEL MD Ot 786.52 PAINFUL RESPIRATION 11/16/2013 SANDIE REDDY JAY JAY 373.11 STYE (HORDEOLUM EXTERNUM) 11/16/2013 KELSI RANDHAWA DO 373.11 STYE (HORDEOLUM EXTERNUM) 11/16/2013 JAY JAY HOOPER MD 373.11 STYE (HORDEOLUM EXTERNUM) 11/16/2013 JAY JAY HOOPER MD 373.11 STYE (HORDEOLUM EXTERNUM) 12/28/2013 ROCK HOOPER MDISTA 466.0 BRONCHITIS, ACUTE 12/28/2013 JAY JAY HOOPER MD 477.0 ALLERGIC RHINITIS DUE TO POLLEN 12/28/2013 ROCK HOOPER MDISTA 493.92 ASTHMA (ACUTE) EXACERBATION 12/28/2013 JAY JAY HOOPER MD 466.0 BRONCHITIS, ACUTE 12/28/2013 ROCK HOOPER MDISTA 477.0 ALLERGIC RHINITIS DUE TO POLLEN 12/28/2013 ROCK HOOPER MDISTA 493.92 ASTHMA (ACUTE) EXACERBATION 02/21/2014 ROCK HOOPER MDISTA 493.90 ASTHMA UNSPECIFIED 03/29/2015 CHANTE STALLWORTH MD Ot O9A.212 INJ/POISN/OTH CONSEQ OF EXTRN CAUSES COM 03/29/2015 CHANTE STALLWORTH MD Ot W19.XXXA UNSPECIFIED FALL, INITIAL ENCOUNTER 03/29/2015 CHANTE STALLWORTH MD Ot Y92.[address] IN [facility] NON-INSTITUT (PRIVATE 03/29/2015 CHANTE STALLWORTH MD Ot Y99.8 OTHER EXTERNAL CAUSE STATUS 03/29/2015 CHANTE STALLWORTH MD Ot Z3A.20 20 WEEKS GESTATION OF 04/27/2015 FENECH DO, FAIZA S Ot O26.852 SPOTTING COMPLICATING , SECOND 04/27/2015 FENECH DO, FAIZA S Ot Z3A.22 22 WEEKS GESTATION OF 07/23/2015 ELMA MCKEON DOA C Ot O36.8130 DECREASED MOVEMENTS, THIRD TRIMEST 07/23/2015 MIKE DOAMY C Ot Z3A.36 36 WEEKS GESTATION OF 07/29/2015 AMY MCKEON DO Ot O36.8130 DECREASED MOVEMENTS, THIRD TRIMEST 07/29/2015 AMY MCKEON DO C Ot Z3A.36 36 WEEKS GESTATION OF 08/14/2015 CHANTE STALLWORTH MD Ot D62 ACUTE POSTHEMORRHAGIC ANEMIA 08/14/2015 CHANTE STALLWORTH MD Ot O14.03 MILD TO MODERATE PRE-ECLAMPSIA, THIRD TR 08/14/2015 CHANTE STALLWORTH MD Ot O71.4 OBSTETRIC HIGH VAGINAL LACERATION ALONE 08/14/2015 CHANTE STALLWORTH MD Ot O90.81 ANEMIA OF THE PUERPERIUM 08/14/2015 CHANTE STALLWORTH MD Ot Z37.0 SINGLE LIVE 08/14/2015 CHANTE STALLWORTH MD Ot Z3A.39 39 WEEKS GESTATION OF 02/10/2017 SANDIE REDDY, JAY JAY Kaplan Ot 786.50 CHEST PAIN NOS 02/11/2017 AMY MCKEON DO Ot Z36.87 ENCOUNTER FOR SCREENING FOR UN 02/11/2017 AMY MCKEON DO Ot Z3A.20 20 WEEKS GESTATION OF 02/23/2017 AMY MCKEON DO Ot Z36.87 ENCOUNTER FOR SCREENING FOR UN 02/23/2017 AMY MCKEON DO Ot Z3A.20 20 WEEKS GESTATION OF 03/11/2017 ELMA MCKEON DOA C Ot Z36.89 ENCOUNTER FOR OTHER SPECIFIED 03/11/2017 MIKE DO, AMY C Ot Z3A.20 20 WEEKS GESTATION OF 03/31/2017 SANDIE REDDY, JAY JAY Kaplan Ot 786.50 CHEST PAIN NOS 03/31/2017 MIKE MONTERO, AMY C Ot Z36.89 ENCOUNTER FOR OTHER SPECIFIED 03/31/2017 MIKE DO, AMY C Ot Z3A.20 20 WEEKS GESTATION OF 04/16/2017 ELMA MCKEON DOA C Ot O26.843 UTERINE SIZE-DATE DISCREPANCY, THIRD TRI 04/16/2017 ELMA MCKEON DOA C Ot Z3A.28 28 WEEKS GESTATION OF 05/19/2017 JAY JAY HOOPER MD Ot 786.50 CHEST PAIN NOS 05/19/2017 MIKE DO, AMY C Ot Z36.89 ENCOUNTER FOR OTHER SPECIFIED 05/19/2017 MIKE DO, AMY C Ot Z3A.20 20 WEEKS GESTATION OF 05/19/2017 MIKE MONTERO AMY C Ot O26.843 UTERINE SIZE-DATE DISCREPANCY, THIRD TRI 05/19/2017 MIEK MONTERO AMY C Ot Z3A.28 28 WEEKS GESTATION OF 05/20/2017 NOLAN SNIDER DO Ot J45.909 UNSPECIFIED ASTHMA, UNCOMPLICATED 05/20/2017 NOLAN SNIDER DO Ot O60.03 LABOR WITHOUT DELIVERY, THIRD TR 05/20/2017 NOLAN SNIDER DO Ot O99.513 DISEASES OF THE RESP SYS COMP , 05/20/2017 NOLAN SNIDER DO Ot Z3A.35 35 WEEKS GESTATION OF 05/29/2017 MITCHELL ZAMUDIO MD Ot O47.03 FALSE LABOR BEFORE 37 COMPLETED WEEKS OF 05/29/2017 MITCHELL ZAMUDIO MD, Ot Z3A.36 36 WEEKS GESTATION OF 06/08/2017 MITCHELL ZAMUDIO MD, Ot O47.03 FALSE LABOR BEFORE 37 COMPLETED WEEKS OF 06/08/2017 MITCHELL ZAMUDIO MD, Ot Z3A.36 36 WEEKS GESTATION OF 06/10/2017 LIZZ REDDY, MITCHELL Smith Ot O47.03 FALSE LABOR BEFORE 37 COMPLETED WEEKS OF 06/10/2017 MITCHELL ZAMUDIO MD, Ot Z3A.36 36 WEEKS GESTATION OF 06/13/2017 AMY MCKEON DO Ot D64.9 ANEMIA, UNSPECIFIED 06/13/2017 AMY MCKEON DO Ot J45.909 UNSPECIFIED ASTHMA, UNCOMPLICATED 06/13/2017 AMY MCKEON DO Ot O99.03 ANEMIA COMPLICATING THE PUERPERIUM 06/13/2017 AMY MCKEON DO Ot O99.513 DISEASES OF THE RESP SYS COMP , 06/13/2017 AMY MCKEON DO Ot Z37.0 SINGLE LIVE 06/13/2017 AMY MCKEON DO Ot Z3A.38 38 WEEKS GESTATION OF Procedures Code Description [place] [address] XRAY CHEST 2 VIEW 05/23/2012 34.04 INSERT INTERCOSTAL CATH 04/15/2013 51902 THERAPUTIC INJ SQ/IM 2013 J1050 DEPO PROVERA 2013 11907 GC/CHLAM URINE (STATE) 2013 63337 TEST, URINE (IN-HOUSE) 2013 11097 XRAY CHEST 2 VIEW 09/14/[address] CHEST W/DYE 09/14/2013 01333 NEBULIZER TREATMENT 09/14/2013 34536 OXIMETRY 09/14/2013 J7613 ALBUTEROL UNIT DOSE FORM INHALED 09/14/2013 74033 CULTURE URINE 09/20/2013 43249 UA W/ CULTURE IF INDICATED 09/20/2013 60993 TEST, URINE (IN-HOUSE) 12/14/2013 J1050 DEPO PROVERA 12/14/2013 82992 THERAPUTIC INJ SQ/IM 12/14/2013 21021 XRAY CHEST 2 VIEW 12/29/2013 PEDIATRIC Cmh, Pain Management 02/23/2014 [id number] REPAIR VAGINA, OPEN APPROACH 08/12/2015 90I7TZR DELIVERY OF PRODUCTS OF CONCEPTION, EXTE 08/12/2015 [id number] INTRODUCE OTH THERAP SUBST IN MOUTH/PHAR 08/12/2015 [id number] DELIVERY OF PRODUCTS OF CONCEPTION, EXTE 06/11/2017 Results Test Result Range Complete urinalysis with reflex to culture - 05/19/17 16:05 Urine color determination YELLOW NRG Urine clarity determination CLEAR NRG Urine pH measurement by test strip 6 5-9 Specific gravity of urine by test strip 1.015 1.016-1.022 Urine protein assay by test strip, semi-quantitative NEGATIVE NEGATIVE Urine glucose detection by automated test strip NEGATIVE NEGATIVE Erythrocytes detection in urine sediment by light microscopy 4+ NEGATIVE Urine ketones detection by automated test strip 2+ NEGATIVE Urine nitrite detection by test strip NEGATIVE NEGATIVE Urine total bilirubin detection by test strip NEGATIVE NEGATIVE Urine urobilinogen measurement by automated test strip (mass/volume) NORMAL NORMAL Urine leukocyte esterase detection by dipstick 1+ NEGATIVE Automated urine sediment erythrocyte count by microscopy (number/high power field) [HPF] NRG Automated urine sediment leukocyte count by microscopy (number/high power field) [HPF] NRG Bacteria detection in urine sediment by light microscopy TRACE NRG Squamous epithelial cells detection in urine sediment by light microscopy 5-10 NRG Crystals detection in urine sediment by light microscopy NONE NRG Casts detection in urine sediment by light microscopy NONE NRG Mucus detection in urine sediment by light microscopy NEGATIVE NRG Complete urinalysis with reflex to culture NO NRG Bacterial urine culture - 05/19/17 16:05 URINE CULTURE RESULTS <10,000/ML NRG Complete blood count (CBC) with automated white blood cell (WBC) differential - 05/19/17 16:51 Blood leukocytes automated count (number/volume) 10.7 10*3/uL 4.3-11.0 Blood erythrocytes automated count (number/volume) 3.98 10*6/uL 4.35-5.85 Venous blood hemoglobin measurement (mass/volume) 10.7 g/dL 11.5-16.0 Blood hematocrit (volume fraction) 32 % 35-52 Automated erythrocyte mean corpuscular volume 79 [foz_us] 80-99 Automated erythrocyte mean corpuscular hemoglobin (mass per erythrocyte) 27 pg 25-34 Automated erythrocyte mean corpuscular hemoglobin concentration measurement (mass/volume) 34 g/dL 32-36 Automated erythrocyte distribution width ratio 12.5 % 10.0- 14.5 Automated blood platelet count (count/volume) 221 10*3/uL 130-400 Automated blood platelet mean volume measurement 10.0 [foz_us] 7.4-10.4 Automated blood neutrophils/100 leukocytes 76 % 42-75 Automated blood lymphocytes/100 leukocytes 17 % 12-44 Blood monocytes/100 leukocytes 6 % 0-12 Automated blood eosinophils/100 leukocytes 1 % 0-10 Automated blood basophils/100 leukocytes 0 % 0-10 Blood neutrophils automated count (number/volume) 8.1 10*3 1.8-7.8 Blood lymphocytes automated count (number/volume) 1.8 10*3 1.0-4.0 Blood monocytes automated count (number/volume) 0.7 10*3 0.0- 1.0 Automated eosinophil count 0.1 10*3/uL 0.0-0.3 Automated blood basophil count (count/volume) 0.0 10*3/uL 0.0-0.1 Blood type T Indirect antibody screen panel - 05/19/17 16:51 ABO+Rh group ABP NRG Transfusion band number [id number] NRG Blood group antibody screen NEGATIVE NRG Complete urinalysis with reflex to culture - 05/29/17 20:50 Urine color determination YELLOW NRG Urine clarity determination CLEAR NRG Urine pH measurement by test strip 6 5-9 Specific gravity of urine by test strip 1.020 1.016-1.022 Urine protein assay by test strip, semi-quantitative 1+ NEGATIVE Urine glucose detection by automated test strip NEGATIVE NEGATIVE Erythrocytes detection in urine sediment by light microscopy NEGATIVE NEGATIVE Urine ketones detection by automated test strip NEGATIVE NEGATIVE Urine nitrite detection by test strip NEGATIVE NEGATIVE Urine total bilirubin detection by test strip NEGATIVE NEGATIVE Urine urobilinogen measurement by automated test strip (mass/volume) NORMAL NORMAL Urine leukocyte esterase detection by dipstick 2+ NEGATIVE Automated urine sediment erythrocyte count by microscopy (number/high power field) RARE NRG Automated urine sediment leukocyte count by microscopy (number/high power field) [HPF] NRG Bacteria detection in urine sediment by light microscopy FEW NRG Squamous epithelial cells detection in urine sediment by light microscopy 5-10 NRG Crystals detection in urine sediment by light microscopy NONE NRG Casts detection in urine sediment by light microscopy NONE NRG Mucus detection in urine sediment by light microscopy NEGATIVE NRG Complete urinalysis with reflex to culture YES NRG Bacterial urine culture - 05/29/17 20:50 URINE CULTURE RESULTS 10,000/ML - 100,000/ML NRG Complete blood count (CBC) with automated white blood cell (WBC) differential - 06/11/17 09:28 Blood leukocytes automated count (number/volume) 12.3 10*3/uL 4.3-11.0 Blood erythrocytes automated count (number/volume) 4.10 10*6/uL 4.35-5.85 Venous blood hemoglobin measurement (mass/volume) 10.8 g/dL 11.5-16.0 Blood hematocrit (volume fraction) 32 % 35-52 Automated erythrocyte mean corpuscular volume 78 [foz_us] 80-99 Automated erythrocyte mean corpuscular hemoglobin (mass per erythrocyte) 26 pg 25-34 Automated erythrocyte mean corpuscular hemoglobin concentration measurement (mass/volume) 34 g/dL 32-36 Automated erythrocyte distribution width ratio 12.9 % 10.0- 14.5 Automated blood platelet count (count/volume) 236 10*3/uL 130-400 Automated blood platelet mean volume measurement 10.3 [foz_us] 7.4-10.4 Automated blood neutrophils/100 leukocytes 72 % 42-75 Automated blood lymphocytes/100 leukocytes 19 % 12-44 Blood monocytes/100 leukocytes 8 % 0-12 Automated blood eosinophils/100 leukocytes 1 % 0-10 Automated blood basophils/100 leukocytes 0 % 0-10 Blood neutrophils automated count (number/volume) 8.8 10*3 1.8-7.8 Blood lymphocytes automated count (number/volume) 2.4 10*3 1.0-4.0 Blood monocytes automated count (number/volume) 1.0 10*3 0.0- 1.0 Automated eosinophil count 0.1 10*3/uL 0.0-0.3 Automated blood basophil count (count/volume) 0.0 10*3/uL 0.0-0.1 Blood type T Indirect antibody screen panel - 06/11/17 09:28 ABO+Rh group ABP NRG Transfusion band number [id number] [facility] Blood group antibody screen NEGATIVE [facility] Complete blood count (CBC) with automated white blood cell (WBC) differential - 06/12/17 05:45 Blood leukocytes automated count (number/volume) 13.8 10*3/uL 4.3-11.0 Blood erythrocytes automated count (number/volume) 3.72 10*6/uL 4.35-5.85 Venous blood hemoglobin measurement (mass/volume) 9.8 g/dL 11.5-16.0 Blood hematocrit (volume fraction) 30 % 35-52 Automated erythrocyte mean corpuscular volume 79 [foz_us] 80-99 Automated erythrocyte mean corpuscular hemoglobin (mass per erythrocyte) 26 pg 25-34 Automated erythrocyte mean corpuscular hemoglobin concentration measurement (mass/volume) 33 g/dL 32-36 Automated erythrocyte distribution width ratio 13.1 % 10.0- 14.5 Automated blood platelet count (count/volume) 220 10*3/uL 130-400 Automated blood platelet mean volume measurement 10.3 [foz_us] 7.4-10.4 Automated blood neutrophils/100 leukocytes 69 % 42-75 Automated blood lymphocytes/100 leukocytes 20 % 12-44 Blood monocytes/100 leukocytes 10 % 0-12 Automated blood eosinophils/100 leukocytes 1 % 0-10 Automated blood basophils/100 leukocytes 0 % 0-10 Blood neutrophils automated count (number/volume) 9.5 10*3 1.8-7.8 Blood lymphocytes automated count (number/volume) 2.7 10*3 1.0-4.0 Blood monocytes automated count (number/volume) 1.4 10*3 0.0- 1.0 Automated eosinophil count 0.2 10*3/uL 0.0-0.3 Automated blood basophil count (count/volume) 0.0 10*3/uL 0.0-0.1 Complete blood count (CBC) with automated white blood cell (WBC) differential - 08/19/18 21:48 Blood leukocytes automated count (number/volume) 7.7 10*3/uL 4.3-11.0 Blood erythrocytes automated count (number/volume) 5.03 10*6/uL 4.35-5.85 Venous blood hemoglobin measurement (mass/volume) 13.9 g/dL 11.5-16.0 Blood hematocrit (volume fraction) 41 % 35-52 Automated erythrocyte mean corpuscular volume 81 [foz_us] 80-99 Automated erythrocyte mean corpuscular hemoglobin (mass per erythrocyte) 28 pg 25-34 Automated erythrocyte mean corpuscular hemoglobin concentration measurement (mass/volume) 34 g/dL 32-36 Automated erythrocyte distribution width ratio 12.8 % 10.0- 14.5 Automated blood platelet count (count/volume) 339 10*3/uL 130-400 Automated blood platelet mean volume measurement 9.7 [foz_us] 7.4-10.4 Automated blood neutrophils/100 leukocytes 48 % 42-75 Automated blood lymphocytes/100 leukocytes 37 % 12-44 Blood monocytes/100 leukocytes 10 % 0-12 Automated blood eosinophils/100 leukocytes 4 % 0-10 Automated blood basophils/100 leukocytes 1 % 0-10 Blood neutrophils automated count (number/volume) 3.7 10*3 1.8-7.8 Blood lymphocytes automated count (number/volume) 2.8 10*3 1.0-4.0 Blood monocytes automated count (number/volume) 0.8 10*3 0.0- 1.0 Automated eosinophil count 0.3 10*3/uL 0.0-0.3 Automated blood basophil count (count/volume) 0.1 10*3/uL 0.0-0.1 Serum or plasma choriogonadotropin ( test) detection - 08/19/18 21:48 Serum or plasma choriogonadotropin ( test) detection NEGATIVE NEGATIVE Comprehensive metabolic panel - 08/19/18 21:48 Serum or plasma sodium measurement (moles/volume) 142 mmol/L 135-145 Serum or plasma potassium measurement (moles/volume) 3.9 mmol/L 3.6-5.0 Serum or plasma chloride measurement (moles/volume) 107 mmol/L 98-107 Carbon dioxide 22 mmol/L 21-32 Serum or plasma anion gap determination (moles/volume) 13 mmol/L 5-14 Serum or plasma urea nitrogen measurement (mass/volume) 13 mg/dL 7-18 Serum or plasma creatinine measurement (mass/volume) 0.77 mg/dL 0.60-1.30 Serum or plasma urea nitrogen/creatinine mass ratio 17 NRG Serum or plasma creatinine measurement with calculation of estimated glomerular filtration rate > NRG Serum or plasma glucose measurement (mass/volume) 94 mg/dL 70-105 Serum or plasma calcium measurement (mass/volume) 9.7 mg/dL 8.5-10.1 Serum or plasma total bilirubin measurement (mass/volume) 0.5 mg/dL 0.1-1.0 Serum or plasma alkaline phosphatase measurement (enzymatic activity/volume) 114 U/L 40-136 Serum or plasma aspartate aminotransferase measurement (enzymatic activity/volume) 18 U/L 5-34 Serum or plasma alanine aminotransferase measurement (enzymatic activity/volume) 23 U/L 0-55 Serum or plasma protein measurement (mass/volume) 8.3 g/dL 6.4-8.2 Serum or plasma albumin measurement (mass/volume) 4.8 g/dL 3.2-4.5 Serum or plasma C reactive protein measurement (mass/volume) - 08/19/18 21:48 Serum or plasma C reactive protein measurement (mass/volume) 0.35 mg/dL 0.00-0.50 Serum or plasma troponin i.cardiac measurement (mass/volume) - 08/19/18 21:48 Serum or plasma troponin i.cardiac measurement (mass/volume) < ng/mL <0.028 Fibrin D-dimer FEU measurement in platelet poor plasma (mass/volume) - 08/19/18 21:48 Fibrin D-dimer FEU measurement in platelet poor plasma (mass/volume) 0.18 ug/mL 0.00-0.49 Encounters ACCT No. Visit Date/Time Discharge Status Pt. Type Provider Facility Loc./Unit Complaint [id number] 02/21/2014 08:34:00 02/21/2014 23:59:59 CLS Outpatient JAY JAY HOOPER MD [id number] 12/28/2013 13:38:00 12/28/2013 23:59:59 CLS Outpatient JAY JAY HOOPER MD [id number] 12/14/2013 14:40:00 12/14/2013 23:59:59 CLS Outpatient KELSI RANDHAWA DO [id number] 11/16/2013 09:25:00 11/16/2013 23:59:59 CLS Outpatient JAY JAY HOOPER MD [id number] 09/20/2013 10:01:00 09/20/2013 23:59:59 CLS Outpatient JAY JAY HOOPER MD [id number] 09/14/2013 15:45:00 09/14/2013 23:59:59 CLS Outpatient JAY JAY HOOPER MD [id number] 2013 15:57:00 2013 23:59:59 CLS Outpatient JANY DELANEY APRN [id number] 05/23/2012 15:59:00 05/23/2012 23:59:59 CLS Outpatient ALANA WEBBER MD [id number] 05/23/2012 15:59:00 05/23/2012 23:59:59 CLS Outpatient [id number] 05/11/2012 16:44:00 05/11/2012 23:59:59 CLS Outpatient [id number] 06/21/2017 08:00:00 06/21/2017 23:59:59 CLS Preadmit AMY MCKEON DO INDUCTION [id number] 06/11/2017 09:31:00 06/13/2017 15:30:00 DIS Inpatient AMY MCKEON DO [facility] LDRP LABOR [id number] 05/29/2017 20:43:00 05/29/2017 22:15:00 DIS Outpatient MITCHELL ZAMUDIO MD [facility] WSo LABOR [id number] 05/19/2017 12:10:00 05/20/2017 10:23:00 DIS Inpatient NOLAN SNIDER DO [facility] ABDOMINAL PAIN [id number] 03/31/2017 10:16:00 03/31/2017 23:59:59 CLS Outpatient AMY MCKEON DO [facility] RAD EVALUATE ANATOMY NOT SEEN ON PRIOR SONOGRAM [id number] 02/10/2017 13:07:00 02/10/2017 23:59:59 CLS Outpatient AMY MCKEON DO [facility] RAD SURVEY [id number] 08/11/2015 23:29:00 08/14/2015 12:30:00 DIS Inpatient FEDERICA REDDY, CHANTE Garcia [facility] LDRP INDUCTION [id number] 07/23/2015 17:10:00 07/23/2015 20:15:00 DIS Outpatient AMY MCKEON DO [facility] WSo N/V,LACK OF MOVEMENT [id number] 04/27/2015 10:09:00 04/27/2015 12:02:00 DIS Outpatient FENFAIZA WILLIAM DO S [facility] VAG BLEEDING [id number] 03/29/2015 11:54:00 03/29/2015 12:50:00 DIS Outpatient FEDERICA REDDY, CHANTE Garcia [facility] PAIN FROM FALL [id number] 10/20/2013 02:05:00 10/20/2013 03:33:00 DIS Emergency LAMONT REDDY, LITO Bhakta [facility] ER SOB [id number] 09/14/2013 18:02:00 09/14/2013 23:59:59 CLS Outpatient SANDIE REDDY, JAY JAY Kaplan [facility] RAD CHEST PAIN, POSS TRACHEAL DEVIATION [id number] 09/13/2013 23:42:00 09/14/2013 00:41:00 DIS Emergency LEE REED DO [facility] ER SOB [id number] 04/18/2013 21:21:00 04/18/2013 23:21:00 DIS Emergency AKIN REDDY, VÍCTOR Delaney [facility] ER R SIDE PAIN [id number] 04/15/2013 00:18:00 04/17/2013 16:00:00 DIS Inpatient ALIYA REDDY, HENRRY Gomez [facility] [facility] SPONTANEOUS LEFT PNEUMOTHORAX [id number] 08/19/2018 21:45:00 ACT Emergency GUME REDDY, ALVIN [place] [facility] SOA [id number] 07/19/2018 12:40:00 07/19/2018 23:59:59 CLS Outpatient [facility]
--- NOTE | 2018-08-20 06:33 | Diagnostic Imaging Report ---
INDICATION: Shortness of air COMPARISON: 10/20/2013 TECHNIQUE: Single radiograph of the chest dated 08/19/2018. FINDINGS: The cardiac silhouette is within normal limits in size. No significant pulmonary vascular congestion. The lungs are clear. No pleural effusion. No pneumothorax. No acute osseous abnormality. IMPRESSION: No acute cardiopulmonary abnormality. Dictated by: Dictated on workstation # [id number]
== END 2018-08-19 23:01 | disposition home or self-care (01) ==
LOC: EDUNIT# 21:44 → ER 21:45
DX: R07.89 Other chest pain (principal); J45.909 Unspecified asthma, uncomplicated; F41.9 Anxiety disorder, unspecified; Z86.19 Personal history of other infectious and parasitic diseases; Z87.09 Personal history of other diseases of the respiratory system
CPT/HCPCS: 36415; 71045; 80053; 84484; 84703; 85025; 85379; 86141; 93005

== ENCOUNTER 2019-06-08 08:01 | Emergency (ER) | payer MEDICAID ==
[~2019-06-08] VITALS: Ht 157 cm; Wt 83.1 kg
--- NOTE | 2019-06-08 08:15 | NUR ---
GAVE PT SALT WATER TO CHRIS.
[2019-06-08] MEDS ORDERED: SERT100T8 (08:16)
--- NOTE | 2019-06-08 08:22 | ED EENT ---
History of Present Illness General Chief Complaint: Oral/Throat Problems Stated Complaint: THROAT SWELLING Nursing Triage Note: ARRIVED VIA AMB TO ROOM 07 WITHOUT DIFFICULTY. COMPLAINS OF THROAT PAIN AND SWELLING STARTING YESTERDAY. Source: patient, family (mother) Exam Limitations: no limitations History of Present Illness Date Seen by Provider: Jun 08, 2019 Time Seen by Provider: 07:56 Initial Comments Patient arrives to the ER by private conveyance with her mother and chief complaint that yesterday she was having some sore scratchy throat and this morning she woke up with quite a bit of swelling. She says she has not tried to drink yet. She's not having any difficulty breathing but does have some changes in her voice. Her swelling is bilateral. She says her brother had viral tonsillopharyngitis over the past week. She's not had any fever or chills nausea vomiting diarrhea rash. She is on Depo-Provera and is not due for her next shot for another month. She has not taken anything for pain today. Mom says she had a spontaneous pneumothorax when she was a teenager. Allergies and Home Medications Allergies Coded Allergies: No Known Drug Allergies (Unverified , 11/07/09) Patient Home Medication List Home Medication List Reviewed: Yes Review of Systems Review of Systems Constitutional: No chills, No diaphoresis, No fever; malaise Eyes: Denies Blindness, Denies Blurred Vision, Denies Drainage Ears: Denies Dizziness, Denies Pain Nose: denies clots, denies congestion Mouth: denies clots, denies pain Throat: pain, swelling; denies discharge, denies neck stiffness; hoarse; denies aphonia, denies muffled; painful swallowing; denies difficulty with fluids Respiratory: No cough, No dyspnea on exertion Cardiovascular: No chest pain, No palpitations, No syncope Gastrointestinal: No abdominal pain, No constipation, No nausea, No vomiting Past Cbhlins-Edycxb-Yxmylt Hx Patient Social History Alcohol Use: Occasionally Uses Recreational Drug Use: No Smoking Status: Never a Smoker 2nd Hand Smoke Exposure: No Recent Foreign Travel: No Contact w/Someone Who Travel: No Recent Infectious Disease Expo: No Recent Hopitalizations: No (BRONCHITIS) Immunizations Up To Date Tetanus Booster (TDap): Less than 5yrs Date of Pneumonia Vaccine: Apr 17, 2013 Date of Influenza Vaccine: Feb 16, 2017 Past Medical History Surgeries: Yes (bilateral chest tube insertion) Respiratory: Yes Asthma Currently Using CPAP: No Cardiac: No Neurological: Yes (concussion 2011) Reproductive Disorders: No Sexually Transmitted Disease: Yes (chlamydia) Genitourinary: No Gastrointestinal: No Musculoskeletal: No Endocrine: No HEENT: No Cancer: No Psychosocial: Yes Anxiety Integumentary: No Blood Disorders: No Adverse Reaction/Blood Tranf: No Family Medical History Cancer 03 FATHER Chest pain 03 MOTHER Family history: Asthma 03 MOTHER Headache 03 FATHER 03 MOTHER 09 BROTHER 09 BROTHER 09 SISTER Visual impairment 03 MOTHER No Family History of: Abdominal aortic aneurysm Beau's disease Alcoholism Aphasia Cancer of colon Cataract Congenital heart disease Congestive heart failure Cystic fibrosis Dementia Dysphagia Family history: Allergy Family history: Alzheimer's disease Family history: Arthritis Family history: Breast disease Family history: Cardiovascular disease Family history: Coronary thrombosis Family history: Diabetes mellitus Family history: Gastrointestinal disease Family history: Glaucoma Family history: Hypertension Family history: Osteoporosis Hearing loss Heart disease Hereditary disease History of - anemia History of - disorder History of - respiratory disease History of drug abuse Human immunodeficiency virus (HIV) seropositivity Hypercholesterolemia Infertile Kidney disease Malignant neoplasm of lung Myocardial infarction Parkinson's disease Prostate cancer Psychotic disorder Seizure disorder Stroke Tuberculosis Physical Exam Vital Signs Vital Signs - First Documented 06/08/19 08:05 Temp 36.9 Pulse 78 Resp 16 B/P (MAP) 128/105 (113) Pulse Ox 98 O2 Delivery Room Air Height, Weight, BMI Height: 5'2.00" Weight: 180lbs. 0.0oz. 81.234555gy; 33.00 BMI Method:Stated General Appearance: WD/WN, mild distress Eyes: bilateral eye normal inspection, bilateral eye PERRL, bilateral eye EOMI Ears: bilateral ear auricle normal, bilateral ear canal normal, bilateral ear TM normal Nose: normal inspection; No discharge Mouth/Throat: tonsillar exudate, tonsillar swelling (tonsils with approximately 5 mm between), other (no stridor) Neck: non-tender, full range of motion, normal inspection, lymphadenopathy (R), lymphadenopathy (L) (bilateral anterior cervical shotty lymphadenopathy) Cardiovascular: normal peripheral pulses, regular rate, rhythm, no edema Respiratory: lungs clear, normal breath sounds, no respiratory distress, no accessory muscle use Neurologic/Psychiatric: alert, normal mood/affect, oriented x 3 Skin: normal color, warm/dry Progress/Results/Core Measures Results/Orders Lab Results Laboratory Tests Test 06/08/19 08:09 Range/Units Group A Streptococcus Screen POSITIVE H NEGATIVE My Orders Orders - EDIN BAILEY Rapid Strep A Screen (06/08/19 08:11) Vital Signs/I&O 06/08/19 08:05 Temp 36.9 Pulse 78 Resp 16 B/P (MAP) 128/105 (113) Pulse Ox 98 O2 Delivery Room Air Blood Pressure Mean: 113 Progress Progress Note #1: Time: 08:22 Progress Note Tonsil swab for rapid strep. Saltwater gargle. We'll consider giving her a shot of steroids 1. Progress Note #2: Time: 08:48 Progress Note Penicillin and Solu-Medrol IM. Departure Impression Primary Impression: Streptococcal tonsillitis Disposition: HOME, SELF-CARE Condition: Stable Departure-Patient Inst. Decision time for Depature: 08:44 Referrals: [facility] (PCP/Family) Primary Care Physician Patient Instructions: Strep Throat (DC) Add. Discharge Instructions: Amoxicillin one capsule twice a day for 10 days. Drink plenty of fluids. Chloraseptic sprays, throat lozenges, salt water gargles to help reduce swelling. Tylenol 1000 mg every 8 hours as necessary for pain or fever. Ibuprofen 800 mg every 8 hours as necessary for pain or fever. Return to the nearest ER if you have difficulty breathing or inability to swallow fluids. All discharge instructions reviewed with patient and/or family. Voiced understanding. Work/School Note: School/Childcare Release Date Seen in the Emergency Department: Jun 08, 2019 Time Dismissed from Emergency Department: 08:47 Return to School: Jun 12, 2019 Restrictions: Return-No Fever (24hrs) EDIN BAILEY Jun 08, 2019 08:22
[2019-06-08] MEDS ORDERED: AMOX500C2 PO (08:46)
[2019-06-08] MEDS ORDERED: PEN G PROC/BENZATH 1.2 M UNITS (BICILLIN C-R) SYR IM ONE (09:00)
[2019-06-08] MEDS ORDERED: methylPREDNISolone 125 MG (Solu-MEDROL) VIAL IM ONE (09:00)
[2019-06-08 09:15] VITALS: BP 127/76
== END 2019-06-08 09:15 | disposition home or self-care (01) ==
LOC: ER 08:01 → EDUNIT# 08:01 → ER 09:15
DX: J03.00 Acute streptococcal tonsillitis, unspecified (principal)
CPT/HCPCS: 87430; 99285

== ENCOUNTER 2020-01-10 09:40 | Emergency (ER) | payer MEDICAID ==
[~2020-01-10] VITALS: Ht 157 cm; Wt 81.0 kg
[~2020-01-10 09:40] MED LIST changes: +SERT100T8
[2020-01-10 09:59] LABS: BILIRUBIN,URINE 1+ (NEGATIVE); CLARITY,URINE SL CLOUDY; COLOR,URINE DARK YELLOW; GLUCOSE, URINE (UA) NEGATIVE (NEGATIVE); KETONES,URINE NEGATIVE (NEGATIVE); LEUKOCYTE ESTERASE ,URINE TRACE (NEGATIVE); NITRITE,URINE NEGATIVE (NEGATIVE); PH,URINE 5.5 (5-9); PROTEIN,URINE TRACE (NEGATIVE)
[2020-01-10] MEDS ORDERED: NITR100C10 (09:59)
[2020-01-10 10:29] LABS: BACTERIA,URINE LARGE /HPF; SQUAMOUS EPITHELIAL CELL,UR 25-50 /HPF
--- NOTE | 2020-01-10 10:31 | NUR ---
MESSAGE LEFT WITH [facility] FOR RESULTS OF URINE CULTURE
--- NOTE | 2020-01-10 10:32 | ED GU-Female ---
General Chief Complaint: - Urinary Stated Complaint: BACK PAIN; BLOOD IN URINE Nursing Triage Note: AMBLATED TO ROOM 07 WITHOUT DIFFICULTY. WAS SEEN AT [facility] ON WEDNESDAY FOR PAINFUL URINATION. WAS PRESCRIBED A UNKNOWN ABX AND TOOK X1 AND STOPPED TAKING THEM. NOW COMPLAINS OF BILAT LOWER BACK PAIN ALONG WITH PAINFUL URINATION. Nursing Sepsis Screen: No Definite Risk Source: patient Exam Limitations: no limitations History of Present Illness Date Seen by Provider: Jan 10, 2020 Time Seen by Provider: 10:14 Initial Comments Patient presents ER by private conveyance with chief complaint that one week ago she started to have some dysuria so Wednesday, 5 days ago she went to [facility] and was told that she had a urinary tract infection based on a urine and was started on Bactrim. She did take one dose that day and then the next day she said she felt better so she stopped taking the antibiotic. Now all today she's having worsening dysuria blood in her urine and pain in her back. No fever nausea vomiting chills. She does not want anything for pain. The patient is on Depo-Provera through Dr. Matos. Does not have a primary care doctor. Allergies and Home Medications Allergies Coded Allergies: No Known Drug Allergies (Unverified , 11/07/09) Patient Home Medication List Home Medication List Reviewed: Yes Review of Systems Review of Systems Constitutional: No chills, No dizziness, No fever, No malaise EENTM: No ear discharge, No ear pain Respiratory: No cough, No short of breath Cardiovascular: No chest pain, No edema Gastrointestinal: No abdominal pain, No nausea, No vomiting Genitourinary: dysuria, hematuria Musculoskeletal: see HPI, back pain (r) Skin: No change in color, No change in hair/nails All Other Systemes Reviewed Negative Unless Noted: Yes Past Vwszyvf-Sxtiqv-Eflcll Hx Patient Social History Alcohol Use: Occasionally Uses Recreational Drug Use: Yes Drug of Choice: POT Smoking Status: Never a Smoker 2nd Hand Smoke Exposure: No Recent Foreign Travel: No Contact w/Someone Who Travel: No Recent Infectious Disease Expo: No Recent Hopitalizations: No (BRONCHITIS) Immunizations Up To Date Tetanus Booster (TDap): Less than 5yrs Date of Pneumonia Vaccine: Apr 17, 2013 Date of Influenza Vaccine: Feb 16, 2017 Past Medical History Surgeries: Yes (bilateral chest tube insertion) Respiratory: Yes Asthma Currently Using CPAP: No Cardiac: No Neurological: Yes (concussion 2012) Reproductive Disorders: No Sexually Transmitted Disease: Yes (chlamydia) Genitourinary: No Gastrointestinal: No Musculoskeletal: No Endocrine: No HEENT: No Cancer: No Psychosocial: Yes Anxiety Integumentary: No Blood Disorders: No Adverse Reaction/Blood Tranf: No Family Medical History Cancer 03 FATHER Chest pain 03 MOTHER Family history: Asthma 03 MOTHER Headache 03 FATHER 03 MOTHER 09 BROTHER 09 BROTHER 09 SISTER Visual impairment 03 MOTHER No Family History of: Abdominal aortic aneurysm Caldwell's disease Alcoholism Aphasia Cancer of colon Cataract Congenital heart disease Congestive heart failure Cystic fibrosis Dementia Dysphagia Family history: Allergy Family history: Alzheimer's disease Family history: Arthritis Family history: Breast disease Family history: Cardiovascular disease Family history: Coronary thrombosis Family history: Diabetes mellitus Family history: Gastrointestinal disease Family history: Glaucoma Family history: Hypertension Family history: Osteoporosis Hearing loss Heart disease Hereditary disease History of - anemia History of - disorder History of - respiratory disease History of drug abuse Human immunodeficiency virus (HIV) seropositivity Hypercholesterolemia Infertile Kidney disease Malignant neoplasm of lung Myocardial infarction Parkinson's disease Prostate cancer Psychotic disorder Seizure disorder Stroke Tuberculosis Physical Exam Vital Signs Vital Signs - First Documented 01/10/20 09:45 Temp 36.6 Pulse 78 Resp 16 B/P (MAP) 105/114 (111) Pulse Ox 97 O2 Delivery Room Air Capillary Refill : Less Than 3 Seconds Height, Weight, BMI Height: 5'2.00" Weight: 180lbs. 0.0oz. 81.876052em; 32.00 BMI Method:Stated General Appearance: WD/WN, no apparent distress HEENT: PERRL/EOMI, pharynx normal Cardiovascular: normal peripheral pulses, regular rate, rhythm Respiratory: no respiratory distress, no accessory muscle use Gastrointestinal: normal bowel sounds, soft, tenderness (suprapubic) Back: no vertebral tenderness, CVA tenderness (R) (tenderness to percussion bilaterally), CVA tenderness (L) Neurologic/Psychiatric: alert, normal mood/affect, oriented x 3 Skin: normal color, warm/dry Progress/Results/Core Measures Suspected Sepsis Recent Fever Within 48 Hours: No Infection Criteria Present: Documented Infection New/Unexplained Altered Menta: No Sepsis Screen: No Definite Risk SIRS Temperature: Pulse: 78 Respiratory Rate: 16 Blood Pressure 105 /114 Mean: 111 Results/Orders Lab Results Laboratory Tests Test 01/10/20 09:50 Range/Units Urine Color DARK YELLOW Urine Clarity SL CLOUDY Urine pH 5.5 5-9 Urine Specific [place] >=1.030 1.016-1.022 Urine Protein TRACE H NEGATIVE Urine Glucose (UA) NEGATIVE NEGATIVE Urine Ketones NEGATIVE NEGATIVE Urine Nitrite NEGATIVE NEGATIVE Urine Bilirubin 1+ H NEGATIVE Urine Urobilinogen 0.2 < = 1.0 MG/DL Urine Leukocyte Esterase TRACE H NEGATIVE Urine RBC (Auto) 3+ H NEGATIVE Urine RBC 5-10 H /HPF Urine WBC 10-25 H /HPF Urine Squamous Epithelial Cells 25-50 H /HPF Urine Crystals NONE /LPF Urine Bacteria LARGE H /HPF Urine Casts NONE /LPF Urine Mucus SMALL H /LPF Urine Culture Indicated YES My Orders Orders - EDIN BAILEY Ua Culture If Indicated (01/10/20 09:47) Urine Bedside (01/10/20 09:47) Urine Culture (01/10/20 09:50) Ceftriaxone For Im Use (Rocephin For Im (01/10/20 10:34) Lidocaine 1% Inj 20 Ml (Xylocaine 1% Inj (01/10/20 10:45) Medications Given in ED Current Medications Medications Dose Ordered Sig/Jules Route Start Time Stop Time Status Last Admin Dose Admin Lidocaine HCl 2.1 ml ONCE ONCE INJ 01/10/20 10:45 01/10/20 10:46 DC 01/10/20 10:51 2.1 ML Vital Signs/I&O 01/10/20 09:45 Temp 36.6 Pulse 78 Resp 16 B/P (MAP) 105/114 (111) Pulse Ox 97 O2 Delivery Room Air Capillary Refill : Less Than 3 Seconds Blood Pressure Mean: 111 Progress Note : Time: 10:30 Progress Note Aseptic vital signs with a nonacute abdomen on exam. Repeat urinalysis. We are going to attempt to collect the results of the urine culture from [facility]. Plan to give her a gram of Rocephin IM and have her resume taking her Bactrim. Suspect she probably has pyelonephritis starting up. Departure Impression Primary Impression: Urinary tract infection Qualified Codes: N30.01 - Acute cystitis with hematuria Disposition: HOME, SELF-CARE Condition: Stable Departure-Patient Inst. Decision time for Depature: 10:32 Referrals: [facility] (PCP/Family) Primary Care Physician Patient Instructions: Urinary Tract Infection, Adult (DC) Add. Discharge Instructions: Drink lots of fluids. Resume taking the Bactrim one tablet twice a day with food. Complete the antibiotic. Return to the ER if you have fevers, vomiting or other worrisome symptoms. All discharge instructions reviewed with patient and/or family. Voiced understanding. Scripts Sulfamethoxazole/Trimethoprim (Bactrim Ds Tablet) 1 Each Tablet 1 EACH PO BID for 7 Days, #14 TAB 0 Refills Prov: EDIN BAILEY 01/10/20 Work/School Note: Work Release Form Date Seen in the Emergency Department: Jan 10, 2020 Return to Work: Jan 10, 2020 Restrictions: No Restrictions EDIN BAILEY Jan 10, 2020 10:32
[2020-01-10] MEDS ORDERED: cefTRIAXone 1,000 MG/2.86 ml vial (IM ONLY) IM STA (10:34)
[2020-01-10] MEDS ORDERED: LIDOCAINE 1% INJ 20 ML 20 ML VIAL INJ ONE (10:45)
[2020-01-10] MEDS ORDERED: SULF1TAB35 PO (11:08)
[2020-01-10 11:10] VITALS: BP 126/83
== END 2020-01-10 11:10 | disposition home or self-care (01) ==
LOC: EDUNIT# 09:40 → ER 09:41
DX: N39.0 Urinary tract infection, site not specified (principal); Z80.9 Family history of malignant neoplasm, unspecified; Z87.820 Personal history of traumatic brain injury
CPT/HCPCS: 81000; 84703; 87088; 99284

== ENCOUNTER 2021-10-08 17:37 | Outpatient (CLI) | payer MEDICAID ==
[~2021-10-08] VITALS: Ht 157.5 cm; Wt 87.2 kg
[~2021-10-08 17:37] MED LIST changes: +NITR100C10; +SERT-414; -SERT100T8; +SULF1TAB38 PO
[2021-10-08 18:17] VITALS: BP 114/58
[2021-10-08 18:18] VITALS: BP 114/58
--- NOTE | 2021-10-09 09:27 | Physician Query-Final Dx ---
Clinic Account Progress/Dx Physician Query: Please give diagnosis Please include # weeks gestation Date of Service Oct 08, 2021 at 17:37 CHEY,MarOct 09, 2021 09:27
== END 2021-10-08 19:10 | disposition home or self-care (01) ==
LOC: WSo 17:37 → LDRP 17:37 → WSo 19:10
PROVIDERS: ATTEND Family Medicine
DX: O62.9 Abnormality of forces of labor, unspecified (principal); Z3A.32 32 weeks gestation of pregnancy
CPT/HCPCS: 99213

== ENCOUNTER 2021-11-14 21:34 | Outpatient (CLI) | payer MEDICAID ==
[~2021-11-14] VITALS: Ht 160 cm; Wt 88.2 kg
[2021-11-14] MEDS ORDERED: PREN-37 PO (21:49)
[2021-11-14] MEDS ORDERED: ACET500P24 PO (21:49)
[2021-11-14 21:55] VITALS: BP 128/89
[2021-11-14 22:00] VITALS: BP 128/89
[2021-11-14 22:31] LABS: BILIRUBIN,URINE NEGATIVE (NEGATIVE); CLARITY,URINE CLEAR; COLOR,URINE YELLOW; GLUCOSE, URINE (UA) NEGATIVE (NEGATIVE); KETONES,URINE NEGATIVE (NEGATIVE); LEUKOCYTE ESTERASE ,URINE TRACE (NEGATIVE); NITRITE,URINE NEGATIVE (NEGATIVE); PH,URINE 6.5 (5-9); PROTEIN,URINE 1+ (NEGATIVE)
[2021-11-14 22:36] LABS: BACTERIA,URINE LARGE /HPF
[2021-11-14 23:05] VITALS: BP 137/77
[2021-11-14] MEDS ORDERED: hydrOXYzine (VISTARIL/ATARAX) 25 MG capsule/tablet ONE (23:28)
[2021-11-14] MEDS ORDERED: hydrOXYzine (VISTARIL/ATARAX) 25 MG capsule/tablet PO ONE (23:30)
[2021-11-14] MEDS ORDERED: hydrOXYzine (ATARAX) 10 MG TAB PO ONE (23:30)
[2021-11-15] MEDS ORDERED: LACTATED RINGERS 1,000 ML IV ONE (00:45)
[2021-11-15 01:20] VITALS: BP 133/69
[2021-11-15] MEDS ORDERED: LACTATED RINGERS 1,000 ML IV SCH (01:30)
[2021-11-15 03:30] VITALS: BP 143/73
--- NOTE | 2021-11-17 08:23 | Physician Query-Final Dx ---
Clinic Account Progress/Dx Physician Query: Please give diagnosis Please include # weeks gestation Date of Service Nov 14, 2021 at 21:34 CHEY,MarNov 17, 2021 08:23
== END 2021-11-15 04:00 | disposition home or self-care (01) ==
LOC: WSo 21:34 → LDRP 21:36 → WSo 11-15 04:00
PROVIDERS: ATTEND Family Medicine
DX: Z34.90 Encounter for supervision of normal pregnancy, unspecified, unspecified trimester (principal); Z3A.00 Weeks of gestation of pregnancy not specified
CPT/HCPCS: 81000; 87088

== ENCOUNTER 2021-11-24 00:54 | Outpatient (CLI) | payer MEDICAID ==
[~2021-11-24] VITALS: Ht 157.5 cm; Wt 91.6 kg
[~2021-11-24 00:54] MED LIST changes: +ACET500P24 PO; +PREN-37 PO
[2021-11-24 01:16] VITALS: BP 124/78
[2021-11-24 01:36] LABS: BILIRUBIN,URINE NEGATIVE (NEGATIVE); CLARITY,URINE CLEAR; COLOR,URINE YELLOW; GLUCOSE, URINE (UA) NEGATIVE (NEGATIVE); KETONES,URINE TRACE (NEGATIVE); LEUKOCYTE ESTERASE ,URINE TRACE (NEGATIVE); NITRITE,URINE NEGATIVE (NEGATIVE); PROTEIN,URINE 1+ (NEGATIVE)
[2021-11-24 01:42] LABS: BACTERIA,URINE FEW /HPF; WBC,URINE 0-2 /HPF
[2021-11-24 01:43] LABS: SQUAMOUS EPITHELIAL CELL,UR 25-50 /HPF
[2021-11-24 01:49] VITALS: BP 120/75
[2021-11-24 02:16] VITALS: BP 145/81
[2021-11-24 02:18] VITALS: BP 136/64
[2021-11-24 02:48] VITALS: BP 125/76
[2021-11-24 03:10] VITALS: BP 146/84
--- NOTE | 2021-11-25 08:24 | Physician Query-Final Dx ---
Clinic Account Progress/Dx Physician Query: Please give diagnosis Please include # weeks gestation Date of Service Nov 24, 2021 at 00:54 CHEY,MarNov 25, 2021 08:24
== END 2021-11-24 03:17 | disposition home or self-care (01) ==
LOC: WSo 00:54 → LDRP 00:58 → WSo 03:17
PROVIDERS: ATTEND Family Medicine
DX: O62.9 Abnormality of forces of labor, unspecified (principal); Z3A.39 39 weeks gestation of pregnancy
CPT/HCPCS: 81000; G0463; 99213

== ENCOUNTER 2021-12-03 18:40 | Inpatient (IN) | payer MEDICAID ==
[~2021-12-03] VITALS: Ht 157.5 cm; Wt 91.2 kg
[2021-12-03] MEDS ORDERED: LIDOCAINE/EPI 2% 1:200,00 (XYLOCAINE) 10 ML VIAL INJ PRN (20:30)
[2021-12-03] MEDS ORDERED: LACTATED RINGERS 1,000 ML IV SCH (20:30)
[2021-12-03] MEDS ORDERED: MINERAL OIL 30 ML UDC TOP PRN (20:30)
[2021-12-03] MEDS ORDERED: TERBUTALINE INJ 1 MG/ML (BRETHINE) AMP SC PRN (20:30)
[2021-12-03] MEDS ORDERED: BUTORPHANOL INJ 2 MG/ML (STADOL) VIAL IV PRN (21:00)
[2021-12-03 23:00] VITALS: BP 146/78
[2021-12-03 23:03] LABS: BASOPHILS # (AUTO) 0.1 10^3/uL (0.0-0.1); BASOPHILS % (AUTO) 1 % (0-10); EOSINOPHILS # (AUTO) 0.2 10^3/uL (0.0-0.3); EOSINOPHILS % (AUTO) 2 % (0-10); HEMATOCRIT 31 % (35-52); HEMOGLOBIN 10.7 g/dL (11.5-16.0); LYMPHOCYTES # (AUTO) 2.3 10^3/uL (1.0-4.0); LYMPHOCYTES % (AUTO) 26 % (12-44); MEAN CORPUSCULAR HEMOGLOBIN 28 pg (25-34); MEAN CORPUSCULAR HGB CONC 34 g/dL (32-36); MEAN CORPUSCULAR VOLUME 81 fL (80-99); MEAN PLATELET VOLUME 11.4 fL (9.0-12.2); MONOCYTES # (AUTO) 0.7 10^3/uL (0.0-1.0); MONOCYTES % (AUTO) 8 % (0-12); NEUTROPHILS # (AUTO) 5.7 10^3/uL (1.8-7.8); NEUTROPHILS % (AUTO) 63 % (42-75); PLATELET COUNT 192 10^3/uL (130-400)
[2021-12-03 23:15] VITALS: BP 131/62
[2021-12-03] MEDS ORDERED: AMPICILLIN FOR IV USE 2,000 MG in NS (IVPB) 50 ML IV SCH (23:22)
[2021-12-03 23:30] VITALS: BP 129/72
[2021-12-03 23:45] VITALS: BP 115/60
[2021-12-04] VITALS (47 sets, daily range): BP systolic 115–159; BP diastolic 63–91
[2021-12-04] MEDS: D5 LR IV SOLUTION 1,000 ML IV SCH ×2 (00:09→09:38)
[2021-12-04] MEDS: CATHETER FLUSH 10 ML SYR IV SCH ×5 (00:21→22:49)
[2021-12-04] MEDS: AMPICILLIN FOR IV USE 1,000 MG in NS (IVPB) 50 ML IV SCH ×3 (04:22→12:27)
[2021-12-04] MEDS ORDERED: OXYTOCIN PRE-MIX DRIP 500 ML IV ONE (08:25)
[2021-12-04] MEDS ORDERED: OXYTOCIN PRE-MIX DRIP 500 ML IV SCH (08:30)
[2021-12-04] MEDS ORDERED: fentaNYL 2 mcg/ml BUPIVA 0.125 100 ML ONE (11:31)
[2021-12-04] MEDS ORDERED: LACTATED RINGERS 1,000 ML IV SCH (11:45)
[2021-12-04] MEDS ORDERED: ONDANSETRON 4 MG/2 ML (SDV) Z0FRAN IV PRN (11:45)
[2021-12-04] MEDS ORDERED: diphenhydrAMINE 50 MG/ML INJ (BENADRYL) IV PRN (11:45)
[2021-12-04] MEDS ORDERED: NALOXONE 0.4 MG/ML 1 ML (NARCAN) VIAL IV PRN (11:45)
[2021-12-04] MEDS ORDERED: fentaNYL 2 mcg/ml BUPIVA 0.125 100 ML EPI SCH (11:45)
[2021-12-04] MEDS ORDERED: BUPIVACAINE 0.25% 10 ML (SENSORCAINE) VIAL ONE (11:48)
[2021-12-04] MEDS ORDERED: fentaNYL INJ 100 MCG/2 ML AMP ONE (11:49)
--- NOTE | 2021-12-04 13:30 | History & Physical-OB ---
OB - Chief Complaint & HPI Date/Time Date of Admission: Date of Admission: Dec 03, 2021 at 18:40 Date seen by a Provider: Dec 04, 2021 Time Seen by a Provider: 08:15 Chief Complaint/History OB-Reason for Admission/Chief: Induction of Labor Hx : 4 Hx Para: 2 Expected Date of Delivery: Dec 01, 2021 Gestational Age in Weeks: 40 Gestational Age in Days: 2 Allergies and Home Medications Allergies Coded Allergies: No Known Drug Allergies (Unverified , 11/07/09) Patient Home Medication List Home Medication List Reviewed: Yes Vit/Iron Fumarate/FA ( Tablet) 27 Mg Iron-800 Mcg Tablet, 1 EACH PO DAILY, (Reported) Entered as Reported by: MYNOR GREENWOOD on 11/14/212148 Discontinued Medications Acetaminophen (Tylenol Extra Strength) 500 Mg Powd.pack, 1,000 MG PO PRN, (Reported) Entered as Reported by: MYNOR GREENWOOD on 11/14/212148 OB - History Hx of Present Care: Yes Ultrasounds: Normal mid trimester US Obstetrical Complications: None Medical Complications: None Obstetrical History Hx : 4 Hx Para: 2 Hx # Term Pregnancies: 2 Number of Living Children: 2 Delivery History Hx Blood Disorders: No Adverse Rxn to Tranfusion: No Patient Past Medical History h/o spontaneous pneumothoraces, none this , discussed pt with Dr. Jones who will see Social History/Family History 2nd Hand Smoke Exposure: No Immunizations Tetanus Booster (TDap): Less than 5yrs Date of Pneumonia Vaccine: Apr 17, 2013 Rubella: immune RPR/VDRL: Negative GBS Status: Positive HBsAG: Negative OB - Admission Exam Physical Exam Vitals: Vital Signs 12/04/21 12/04/21 12/04/21 08:40 10:05 10:20 Temp 36.9 Pulse 58 Resp 18 B/P (MAP) 123/75 (91) O2 Delivery Room Air HEENT: NCAT Heart: Rhythm Normal Lungs: Clear Abdomen: Gravid Cervical Dilatation: 3cm Effacement: 100% Station: -1 Membranes: Intact Heart Rate: 140's Accelerations: Accelerations Present Decelerations: No Decelerations Short Term Variability: Present Contractions on Admission: < 5 Minutes Apart Intensity: Moderate Labs Laboratory Tests Test 12/03/21 22:50 Range/Units White Blood Count 9.0 4.3-11.0 10^3/uL Red Blood Count 3.86 3.80-5.11 10^6/uL Hemoglobin 10.7 L 11.5-16.0 g/dL Hematocrit 31 L 35-52 % Mean Corpuscular Volume 81 80-99 fL Mean Corpuscular Hemoglobin 28 25-34 pg Mean Corpuscular Hemoglobin Concent 34 32-36 g/dL Red Cell Distribution Width 12.2 10.0-14.5 % Platelet Count 192 130-400 10^3/uL Mean Platelet Volume 11.4 9.0-12.2 fL Immature Granulocyte % (Auto) 0 % Neutrophils (%) (Auto) 63 42-75 % Lymphocytes (%) (Auto) 26 12-44 % Monocytes (%) (Auto) 8 0-12 % Eosinophils (%) (Auto) 2 0-10 % Basophils (%) (Auto) 1 0-10 % Neutrophils # (Auto) 5.7 1.8-7.8 10^3/uL Lymphocytes # (Auto) 2.3 1.0-4.0 10^3/uL Monocytes # (Auto) 0.7 0.0-1.0 10^3/uL Eosinophils # (Auto) 0.2 0.0-0.3 10^3/uL Basophils # (Auto) 0.1 0.0-0.1 10^3/uL Immature Granulocyte # (Auto) 0.0 0.0-0.1 10^3/uL OB - Assessment/Plan/Diagnosis Assessment Assessment: induction of labor Admission Dx Third Trimester 40 week gestation Admission Status: Inpatient Order (span 2 midnights) Reason for Inpatient Admission: Labor and post care Plan Other Plan 26 yo @ 40.2 wga here for IOL Plan - GBS +, on ampicillin - Not sure about epidural - Cytotec protocol, will start pitocin protocol this AM MINE REARDON MD Dec 04, 2021 13:30
--- NOTE | 2021-12-04 13:32 | Labor Progress Note ---
Labor Progress Note Labor Progress Note Date Seen by Provider: Dec 04, 2021 Time Seen by Provider: 13:30 Subjective: Pt denies complaints. Feeling much better with the epidural Objective: /-2 Bulging bag Assessment/Plan: Julieta Rodriguez is a (26 /Para 3/2 ,Gestational Age (wks)40 here for elective IOL. CEFM/TOCO Continue pitocin protocol Anesthesia: Epidural in place AROM 1325, clear GBS +, adequately treated Anticipate vaginal delivery. Vitals - Labs Vital Signs - I&O Vital Signs Date Time Temp Pulse Resp B/P (MAP) Pulse Ox O2 Delivery O2 Flow Rate FiO2 12/04/21 10:20 123/75 (91) Room Air 12/04/21 10:05 58 18 133/71 (91) Room Air 12/04/21 09:50 62 18 135/63 (87) Room Air 12/04/21 09:35 71 18 140/74 (96) Room Air 12/04/21 09:20 60 18 138/70 (92) Room Air 12/04/21 09:05 74 18 151/91 (111) Room Air 12/04/21 08:55 61 18 134/75 (94) Room Air 12/04/21 08:40 36.9 56 18 134/71 (92) Room Air 12/04/21 07:50 60 18 132/74 (93) Room Air 12/04/21 07:00 65 18 127/69 (88) Room Air 12/04/21 06:00 56 18 126/78 (94) Room Air 12/04/21 05:00 55 18 148/85 (106) Room Air 12/04/21 04:00 67 18 120/64 (82) Room Air 12/04/21 03:00 35.8 72 18 124/72 (89) Room Air 12/04/21 02:00 18 Room Air 12/04/21 01:00 59 18 137/81 (99) Room Air 12/04/21 00:00 18 Room Air 12/03/21 23:45 71 18 115/60 (78) Room Air 12/03/21 23:30 61 18 129/72 (91) Room Air 12/03/21 23:15 71 18 131/62 (85) Room Air 12/03/21 23:00 36.9 66 18 146/78 (100) 98 Room Air 12/03/21 23:00 36.9 66 18 98 Room Air I & O 12/04/21 07:00 Intake Total 114.8 ml Balance 114.8 ml Labs Laboratory Tests 12/03/21 22:50: White Blood Count 9.0, Red Blood Count 3.86, Hemoglobin 10.7L, Hematocrit 31L, Mean Corpuscular Volume 81, Mean Corpuscular Hemoglobin 28, Mean Corpuscular Hemoglobin Concent 34, Red Cell Distribution Width 12.2, Platelet Count 192, Mean Platelet Volume 11.4, Immature Granulocyte % (Auto) 0, Neutrophils (%) (Auto) 63, Lymphocytes (%) (Auto) 26, Monocytes (%) (Auto) 8, Eosinophils (%) (Auto) 2, Basophils (%) (Auto) 1, Neutrophils # (Auto) 5.7, Lymphocytes # (Auto) 2.3, Monocytes # (Auto) 0.7, Eosinophils # (Auto) 0.2, Basophils # (Auto) 0.1, Immature Granulocyte # (Auto) 0.0 MINE REARDON MD Dec 04, 2021 13:31
[2021-12-04] MEDS: OXYTOCIN PRE-MIX DRIP 500 ML IV SCH ×2 (14:00→14:31)
--- NOTE | 2021-12-04 14:13 | OB Labor & Delivery Record ---
Vag Delivery Note Vag Delivery Note Date of Delivery: 12/04/21 Preoperative Diagnosis: Julieta Rodriguez is a (26 /Para 4/2 , Gestational Age (wks)40.2 here for IOL Postoperative Diagnosis: Same Surgeon: MINE REARDON MD [place] Tender: None Anesthesia: Epidural Delivery Type: @ 1353 Findings: Viable Male infant, apgars 8/9, weight 7#11, 3490 grams Lacerations: None Intact placenta with 3 vessel cord. No nuchal cord, body cord or shoulder dystocia Estimated Blood Loss: 100 ml Complications: None Condition: Stable Description of Procedure: The patient is a 26 year old female who presented for IOL. She was admitted and informed consent was obtained. Her labor course was unremarkable. She progressed to complete dilatation and began to push. She was then set up for delivery. The infant's head was delivered atraumatically in the DUDLEY position. The shoulders and remainder of the 's body were then delivered without difficulty. Upon delivery, the head was held below the level of the perineum and the mouth and nares were bulb suctioned. The cord was doubly clamped and cut by FOB after 3 min delay and the infant was attended to by the pediatric staff on maternal abdomen. An intact placenta with 3-vessel cord delivered via [place] and there was found to be minimal bleeding.~ Vigorous fundal massage was performed and the fundus was found to be firm. IV oxytocin was given. Examination of the vagina and perineum revealed no lacerations that required repair. Following the repair, sponge, instrument and needle counts were correct. Mom and baby were both in stable condition in the labor suite. Vitals - Labs Vital Signs - I&O Vital Signs Date Time Temp Pulse Resp B/P (MAP) Pulse Ox O2 Delivery O2 Flow Rate FiO2 12/04/21 12:14 66 18 153/67 (95) 98 Room Air 12/04/21 12:11 36.7 75 18 155/69 (97) 99 Room Air 12/04/21 12:08 73 18 145/87 (106) 99 Room Air 12/04/21 12:00 68 18 159/70 (99) Room Air 12/04/21 11:40 62 18 158/74 (102) Room Air 12/04/21 11:25 68 18 132/86 (101) Room Air 12/04/21 11:10 61 18 132/81 (98) Room Air 12/04/21 10:55 68 18 159/82 (107) Room Air 12/04/21 10:35 60 18 127/72 (90) Room Air 12/04/21 10:20 123/75 (91) Room Air 12/04/21 10:05 58 18 133/71 (91) Room Air 12/04/21 09:50 62 18 135/63 (87) Room Air 12/04/21 09:35 71 18 140/74 (96) Room Air 12/04/21 09:20 60 18 138/70 (92) Room Air 12/04/21 09:05 74 18 151/91 (111) Room Air 12/04/21 08:55 61 18 134/75 (94) Room Air 12/04/21 08:40 36.9 56 18 134/71 (92) Room Air 12/04/21 07:50 60 18 132/74 (93) Room Air 12/04/21 07:00 65 18 127/69 (88) Room Air 12/04/21 06:00 56 18 126/78 (94) Room Air 12/04/21 05:00 55 18 148/85 (106) Room Air 12/04/21 04:00 67 18 120/64 (82) Room Air 12/04/21 03:00 35.8 72 18 124/72 (89) Room Air 12/04/21 02:00 18 Room Air 12/04/21 01:00 59 18 137/81 (99) Room Air 12/04/21 00:00 18 Room Air 12/03/21 23:45 71 18 115/60 (78) Room Air 12/03/21 23:30 61 18 129/72 (91) Room Air 12/03/21 23:15 71 18 131/62 (85) Room Air 12/03/21 23:00 36.9 66 18 146/78 (100) 98 Room Air 12/03/21 23:00 36.9 66 18 98 Room Air I & O 12/04/21 07:00 Intake Total 114.8 ml Balance 114.8 ml Labs Laboratory Tests 12/03/21 22:50: White Blood Count 9.0, Red Blood Count 3.86, Hemoglobin 10.7L, Hematocrit 31L, Mean Corpuscular Volume 81, Mean Corpuscular Hemoglobin 28, Mean Corpuscular Hemoglobin Concent 34, Red Cell Distribution Width 12.2, Platelet Count 192, Mean Platelet Volume 11.4, Immature Granulocyte % (Auto) 0, Neutrophils (%) (Auto) 63, Lymphocytes (%) (Auto) 26, Monocytes (%) (Auto) 8, Eosinophils (%) (Auto) 2, Basophils (%) (Auto) 1, Neutrophils # (Auto) 5.7, Lymphocytes # (Auto) 2.3, Monocytes # (Auto) 0.7, Eosinophils # (Auto) 0.2, Basophils # (Auto) 0.1, Immature Granulocyte # (Auto) 0.0 MINE REARDON MD Dec 04, 2021 14:13
[2021-12-04] MEDS ORDERED: TETANUS,DIPTH,PERTUSS P/F (BOOSTRIX) 0.5 ML VIAL IM ONE (14:15)
[2021-12-04] MEDS ORDERED: MEASLES,MUMPS,RUBELLA 1 EA INJ SQ ONE (14:15)
[2021-12-04] MEDS ORDERED: WITCH HAZEL(TUCKS) 40 EA JAR TOP PRN (14:15)
[2021-12-04] MEDS ORDERED: BENZOCAINE/MENTHOL (DERMOPLAST) 56 ML CAN TP PRN (14:15)
[2021-12-04] MEDS: IBUPROFEN 600 MG (MOTRIN) TAB PO SCH ×2 (16:58→22:49)
[2021-12-04] MEDS: ACETAMINOPHEN 500 MG TAB (TYLENOL) PO SCH ×2 (16:58→22:49)
[2021-12-04] MEDS: DOCUSATE SODIUM 100 MG (COLACE) CAP PO SCH (20:18)
[2021-12-05] VITALS: BP 126/78
[2021-12-05 04:00] VITALS: BP 126/71
[2021-12-05] MEDS: ACETAMINOPHEN 500 MG TAB (TYLENOL) PO SCH ×2 (04:46→11:00)
[2021-12-05] MEDS: IBUPROFEN 600 MG (MOTRIN) TAB PO SCH ×2 (04:46→11:00)
[2021-12-05] MEDS: CATHETER FLUSH 10 ML SYR IV SCH ×2 (05:50)
[2021-12-05 06:02] LABS: BASOPHILS # (AUTO) 0.1 10^3/uL (0.0-0.1); BASOPHILS % (AUTO) 1 % (0-10); EOSINOPHILS # (AUTO) 0.2 10^3/uL (0.0-0.3); EOSINOPHILS % (AUTO) 2 % (0-10); HEMATOCRIT 30 % (35-52); HEMOGLOBIN 9.9 g/dL (11.5-16.0); LYMPHOCYTES % (AUTO) 33 % (12-44); MEAN CORPUSCULAR HEMOGLOBIN 27 pg (25-34); MEAN CORPUSCULAR HGB CONC 33 g/dL (32-36); MEAN CORPUSCULAR VOLUME 82 fL (80-99); MEAN PLATELET VOLUME 11.5 fL (9.0-12.2); MONOCYTES # (AUTO) 0.7 10^3/uL (0.0-1.0); MONOCYTES % (AUTO) 8 % (0-12); NEUTROPHILS # (AUTO) 5.2 10^3/uL (1.8-7.8); NEUTROPHILS % (AUTO) 56 % (42-75); PLATELET COUNT 170 10^3/uL (130-400); WHITE BLOOD COUNT 9.3 10^3/uL (4.3-11.0)
--- NOTE | 2021-12-05 07:46 | Discharge Inst-Women's Service ---
Discharge Inst-Women's Serv Depart Medication/Instructions New, Converted or Re-Newed RX: Other Instructions May use [id number] ibuprofen 200 mg tablets 2 or 3 every 6 hours if needed for cramps. Problems Reviewed?: Yes Consults/Follow Up Additional Follow Up: Yes (Dr. Juarez in 6 weeks) Activity Activity: Activity as Tolerated Driving Instructions: No Driving for 1 Week Nothing Inside Vagina: No [place] (for 6 weeks) Diet Discharge Diet: Regular Diet Return to The Hospital For: as below Symptoms to Report to : Bleeding Excessive, Fever Over 101 Degrees F, Vaginal Discharge Foul For Any Problems or Questions: Contact Your Physician SANCHEZ BOYCE MD Dec 05, 2021 07:46
--- NOTE | 2021-12-05 07:51 | Discharge Summary ---
Diagnosis/Chief Complaint Date of Admission Dec 03, 2021 at 18:40 Date of Discharge December 05, 2021 Admission Diagnosis Admission Diagnosis 1. Intrauterine at term 40 weeks gestation Discharge Diagnosis 1. Intrauterine at term 40 weeks gestation 2. Mild anemia Chief Complaint/HPI Chief Complaint/HPI 26-year-old 4 now para 3 who initially presented for elective induction of labor during the evening of December 03, 2021. Patient was at 40 weeks gestation with favorable cervix. care was essentially unremarkable. She was noted to be GBS positive at 36 week check Discharge Summary-OBS Procedures 1. Epidural per anesthesia 2. Spontaneous vaginal delivery Discharge Physical Examination Allergies: Coded Allergies: No Known Drug Allergies (Unverified , 11/07/09) Vitals & I&Os Intake and Output 12/04/21 23:59 Intake Total 1600 ml Balance 1600 ml Vital Sign - Last 12Hours Date Time Temp Pulse Resp B/P (MAP) Pulse Ox O2 Delivery O2 Flow Rate FiO2 12/05/21 04:00 36.6 66 18 126/71 (89) 97 Room Air General Appearance: No Acute Distress Respiratory: Clear to Auscultation Cardiovascular: Regular Rate Abdominal: Soft (with uterus firm) Hospital Course Was the Problem List Reviewed?: Yes Patient was admitted during the evening of December 03, 2021 for elective induction of labor. Ultimately she underwent ruptured membranes in the a.m. of December 04. She went on to deliver vaginally a term viable male with Apgars of 8 at 1 minute and 9 at 5 minutes. weight of 7 lbs. 11 oz. There were no perineal lacerations. Patient had received epidural during the course of her labor. Following delivery she underwent routine care orders. She had no complications during the remainder of hospital stay. She tolerated a regular diet. She was not noted to have any shortness of breath, chest pain or leg pain. Her hemoglobin in the morning of December 05 was 9.9 compared to admission of 10.7. She was eager for dismissal during the afternoon of December 05, 2021. Labs Laboratory Tests 12/05/21 05:28: White Blood Count 9.3, Red Blood Count 3.62L, Hemoglobin 9.9L, Hematocrit 30L, Mean Corpuscular Volume 82, Mean Corpuscular Hemoglobin 27, Mean Corpuscular Hemoglobin Concent 33, Red Cell Distribution Width 12.1, Platelet Count 170, Mean Platelet Volume 11.5, Immature Granulocyte % (Auto) 1, Neutrophils (%) (Auto) 56, Lymphocytes (%) (Auto) 33, Monocytes (%) (Auto) 8, Eosinophils (%) (Auto) 2, Basophils (%) (Auto) 1, Neutrophils # (Auto) 5.2, Lymphocytes # (Auto) 3.0, Monocytes # (Auto) 0.7, Eosinophils # (Auto) 0.2, Basophils # (Auto) 0.1, Immature Granulocyte # (Auto) 0.1 Discharge Instructions to patient/family Please see electronic discharge instructions given to patient. Discharge Medications Reviewed and agree with Discharge Medication list on patient's Discharge Instruction sheet SANCHEZ BOYCE MD Dec 05, 2021 07:51
[2021-12-05 09:45] VITALS: BP 126/76
[2021-12-05] MEDS: DOCUSATE SODIUM 100 MG (COLACE) CAP PO SCH (09:48)
--- NOTE | 2021-12-05 14:49 | Anesthesia-Regional Post-Op ---
Regional Patient Condition Mental Status: Alert, Oriented x3 Circulation: Same as Pre-Op Headache: Absent Sensation: Full Recovery Motor Block: Absent Post Op Complications Complications None Follow Up Care/Instructions Patient Instructions None needed. Anesthesia/Patient Condition Patient is doing well, no complaints, stable vital signs, no apparent adverse anesthesia problems. No complications reported per nursing. OVIDIO LAWRENCE DO Dec 05, 2021 14:49
[2021-12-05 16:45] VITALS: BP 126/76
== END 2021-12-05 16:45 | disposition home or self-care (01) | DRG 807 ==
LOC: LDRP 18:40
PROVIDERS: ADMIT Family Medicine; ATTEND Family Medicine
PROC: 10E0XZZ Delivery of Products of Conception, External Approach (ICD-10-PCS; principal; 2021-12-03)
PROC: 10907ZC Drainage of Amniotic Fluid, Therapeutic from Products of Conception, Via Natural or Artificial Opening (ICD-10-PCS; 2021-12-03)
DX: O48.0 Post-term pregnancy (principal); Z37.0 Single live birth; Z3A.40 40 weeks gestation of pregnancy; O99.824 Streptococcus B carrier state complicating childbirth; O90.81 Anemia of the puerperium; D64.9 Anemia, unspecified
CPT/HCPCS: 36415; 85025; 86850; 86900; 86901